=== PATIENT | male | born 1955 | race African-American/Black ===

== ENCOUNTER 2020-02-23 09:29 | Outpatient (CLI) | payer MEDICARE, MEDICAID, SELFPAY ==
[2020-02-23 10:49] LABS: Hemoglobin A1C 7.3 % (<5.7)
[2020-02-23 11:24] LABS: Creatinine Urine 89.4 mg/dL
[2020-02-23 12:00] LABS: MALB Creatinine Ratio < 6.7 mg/g (0-30); Microalbumin Urine Random < 6.0 mg/L (0-16.7)
[2020-02-23 16:29] LABS: Alanine Aminotransferase 22 U/L (4-50); Albumin Level 4.7 g/dL (3.5-5.1); Alkaline Phosphatase 120 U/L (38-126); Anion Gap 10 mmol/L (8-16); Aspartate Amino Transferase 32 U/L (17-59); Bilirubin,Total 0.3 mg/dL (0.2-1.3); Blood Urea Nitrogen 9 mg/dL (9-20); Calcium 9.9 mg/dL (8.4-10.2); Carbon Dioxide 26 mmol/L (22-30); Chloride 100 mmol/L (98-107); Cholesterol 192 mg/dL (0-200); Estimated Glomerular Filt Rate > 60; Glucose 135 mg/dL (75-110); HDL Direct 30 mg/dL; Potassium 4.2 mmol/L (3.4-5.0); Sodium 136 mmol/L (137-145); Triglycerides 216 mg/dL (<150)
[2020-02-23 16:40] LABS: LDL Cholesterol Direct 107 mg/dL
== END 2020-02-23 09:30 | disposition home or self-care (01) ==
LOC: ANHLAB 09:29
PROVIDERS: PCP Internal Medicine; Visit Provider Internal Medicine
DX: E11.9 Type 2 diabetes mellitus without complications (principal); F10.11 Alcohol abuse, in remission; E78.5 Hyperlipidemia, unspecified
CPT/HCPCS: 36415; 80053; 80061; 82043; 83036

== ENCOUNTER 2020-03-13 10:47 | Outpatient (CLI) | payer MEDICARE, MEDICAID, SELFPAY ==
[2020-03-13 12:17] LABS: Prostate Specific Antigen 0.4 ng/mL (< OR = 4.0)
== END 2020-03-13 10:48 | disposition home or self-care (01) ==
PROVIDERS: PCP Internal Medicine; Visit Provider Urology
DX: C61 Malignant neoplasm of prostate (principal)
CPT/HCPCS: 36415; 84153

== ENCOUNTER 2020-08-22 09:43 | Outpatient (CLI) | payer MEDICARE, MEDICAID, SELFPAY ==
[2020-08-22 10:29] LABS: Alanine Aminotransferase 13 U/L (4-50); Albumin Level 4.4 g/dL (3.5-5.1); Alkaline Phosphatase 128 U/L (38-126); Anion Gap 10 mmol/L (8-16); Aspartate Amino Transferase 23 U/L (17-59); Bilirubin,Total 0.3 mg/dL (0.2-1.3); Blood Urea Nitrogen 12 mg/dL (9-20); Calcium 9.5 mg/dL (8.4-10.2); Carbon Dioxide 23 mmol/L (22-30); Chloride 98 mmol/L (98-107); Cholesterol 181 mg/dL (0-200); Estimated Glomerular Filt Rate > 60; Glucose 530 mg/dL (75-110); HDL Direct 23 mg/dL; Hemoglobin A1C > 14.0 % (<5.7); LDL Cholesterol Direct 70 mg/dL; Potassium 4.4 mmol/L (3.4-5.0); Sodium 131 mmol/L (137-145); Triglycerides 460 mg/dL (<150)
[2020-08-22 10:51] LABS: Creatinine Urine 46.2 mg/dL
[2020-08-22 11:09] LABS: Microalbumin Urine Random < 6.0 mg/L (0-16.7)
[2020-08-23 05:59] LABS: MALB Creatinine Ratio < 13.0 mg/g (0-30)
== END 2020-08-22 09:44 | disposition home or self-care (01) ==
PROVIDERS: PCP Internal Medicine; Visit Provider Internal Medicine
DX: E11.9 Type 2 diabetes mellitus without complications (principal); Z79.899 Other long term (current) drug therapy; E78.5 Hyperlipidemia, unspecified
CPT/HCPCS: 36415; 80053; 80061; 82043; 83036

== ENCOUNTER 2020-09-06 10:26 | Outpatient (RCR) | payer MEDICARE, MEDICAID, SELFPAY | END 2020-12-05 23:59 | disposition home or self-care (01) | LOC: ANHDMC 10:26 | PROVIDERS: PCP Internal Medicine; Visit Provider Nurse Practitioner | DX: E11.9 Type 2 diabetes mellitus without complications (principal); Z71.89 Other specified counseling | CPT/HCPCS: G0108 ==

== ENCOUNTER 2020-09-11 10:38 | Outpatient (CLI) | payer MEDICARE, MEDICAID, SELFPAY ==
[2020-09-11 12:40] LABS: Prostate Specific Antigen 0.3 ng/mL (< OR = 4.0)
== END 2020-09-11 10:39 | disposition home or self-care (01) ==
PROVIDERS: PCP Internal Medicine; Visit Provider Urology
DX: R97.20 Elevated prostate specific antigen [PSA] (principal)
CPT/HCPCS: 36415; 84153

== ENCOUNTER 2021-04-25 11:03 | Outpatient (CLI) | payer MEDICARE, MEDICAID, SELFPAY ==
--- NOTE | ~2021-04-25 | XR_ITS ---
EXAMINATION: XR hip BI wo pelvis INDICATION: Bilateral hip pain TECHNIQUE: AP view the pelvis and two views of the right hip are obtained on three radiographs. COMPARISON: None available FINDINGS: There is advanced osteoarthritis of the right hip and moderate osteoarthritis of the left h ip. There is no fracture. Bone alignment is normal. Pelvic surgical clips are noted, possibly related to prostatectomy. There are phleboliths of the pelvis. IMPRESSION: 1. Advanced osteoarthritis of the right hip and moderate osteoarthritis of the left hip without acute osseous abnormality. Reviewed, dictated and finalized at location B. 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
--- NOTE | ~2021-04-25 | XR_ITS ---
EXAMINATION: XR lumbar spine 2-3V DATE: 04/25/2021 11:53 INDICATION: Low back pain TECHNIQUE: Anteroposterior and lateral views of the lumbar spine, and cone-down lateral view of the l umbosacral junction were obtained. COMPARISON: None. FINDINGS: There is no fracture, dislocation, or subluxation. The vertebral body heights are normal. T here is mild loss of intervertebral disc space height throughout the lumbar spine. There is moderate facet osteoarthritis of the lower lumbar spine. Small degenerative osteophytes project from the anter ior endplates of multiple vertebral bodies. Calcified atherosclerosis is noted. Surgical clips projec t in the pelvis. A large volume of colonic stool is present. IMPRESSION: 1. Mild lumbar spondylosis without acute findings. Reviewed, dictated and finalized at location B. 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
[2021-04-25 12:10] LABS: Hemoglobin A1C 6.9 % (<5.7)
[2021-04-25 12:12] LABS: Alanine Aminotransferase 19 U/L (4-50); Albumin Level 4.9 g/dL (3.5-5.1); Alkaline Phosphatase 88 U/L (38-126); Anion Gap 11 mmol/L (8-16); Aspartate Amino Transferase 31 U/L (17-59); Bilirubin,Total 0.4 mg/dL (0.2-1.3); Blood Urea Nitrogen 12 mg/dL (9-20); Calcium 9.2 mg/dL (8.4-10.2); Carbon Dioxide 25 mmol/L (22-30); Chloride 104 mmol/L (98-107); Cholesterol 114 mg/dL (0-200); Estimated Glomerular Filt Rate > 60; Glucose 134 mg/dL (65-110); HDL Direct 28 mg/dL; Potassium 4.5 mmol/L (3.4-5.0); Sodium 140 mmol/L (137-145); Triglycerides 75 mg/dL (<150)
[2021-04-25 12:23] LABS: LDL Cholesterol Direct 64 mg/dL
[2021-04-25 12:43] LABS: Prostate Specific Antigen 0.4 ng/mL (< OR = 4.0)
[2021-04-25 13:01] LABS: MALB Creatinine Ratio 15.2 mg/g (0-30); Microalbumin Urine Random 33.5 mg/L (0-16.7)
== END 2021-04-25 11:04 | disposition home or self-care (01) ==
LOC: ANHLAB 11:07
PROVIDERS: Nurse Practitioner; PCP Internal Medicine; Visit Provider Internal Medicine
DX: E78.5 Hyperlipidemia, unspecified (principal); E11.9 Type 2 diabetes mellitus without complications; Z79.899 Other long term (current) drug therapy; Z12.5 Encounter for screening for malignant neoplasm of prostate; C61 Malignant neoplasm of prostate
CPT/HCPCS: 36415; 72100; 73521; 80053; 80061; 82043; 83036; 84153

== ENCOUNTER 2021-09-05 08:12 | Outpatient (CLI) | payer MEDICARE, MEDICAID, SELFPAY ==
[2021-09-05 08:40] LABS: Potassium 4.3 mmol/L (3.4-5.0)
[2021-09-05 08:42] LABS: Alanine Aminotransferase 19 U/L (6-50); Albumin Level 4.9 g/dL (3.5-5.1); Alkaline Phosphatase 84 U/L (38-126); Anion Gap 11 mmol/L (8-16); Aspartate Amino Transferase 29 U/L (17-59); Bilirubin,Total 0.5 mg/dL (0.2-1.3); Blood Urea Nitrogen 14 mg/dL (9-20); Calcium 9.4 mg/dL (8.4-10.2); Carbon Dioxide 23 mmol/L (22-30); Chloride 105 mmol/L (98-107); Cholesterol 122 mg/dL (0-200); Estimated Glomerular Filt Rate > 60; Glucose 142 mg/dL (65-110); HDL Direct 28 mg/dL; Sodium 139 mmol/L (137-145); Triglycerides 88 mg/dL (<150)
[2021-09-05 08:52] LABS: LDL Cholesterol Direct 54 mg/dL
[2021-09-05 08:53] LABS: Hemoglobin A1C 7.7 % (<5.7)
== END 2021-09-05 08:13 | disposition home or self-care (01) ==
PROVIDERS: PCP Internal Medicine; Visit Provider Internal Medicine
DX: E11.9 Type 2 diabetes mellitus without complications (principal); E78.5 Hyperlipidemia, unspecified
CPT/HCPCS: 36415; 80053; 80061; 83036

== ENCOUNTER 2021-09-06 07:01 | Outpatient (CLI) | payer MEDICARE, MEDICAID, SELFPAY ==
[2021-09-11 19:50] LABS: Albumin 4.4 g/dL (3.8-4.8); Alpha 1 Globulin 0.3 g/dL (0.2-0.3); Beta 1 Globulin 0.5 g/dL (0.4-0.6); Gamma Globulin 1.5 g/dL (0.8-1.7); Protein, Total 8.1 g/dL (6.1-8.1)
[2021-09-11 21:55] LABS: Total Protein/Creatinine Ratio 42 mg/g creat (22-128)
== END 2021-09-06 07:02 | disposition home or self-care (01) ==
PROVIDERS: PCP Internal Medicine; Visit Provider Internal Medicine
DX: E88.09 Other disorders of plasma-protein metabolism, not elsewhere classified (principal)
CPT/HCPCS: 36415; 82570; 84155; 84156; 84165; 84166

== ENCOUNTER 2022-03-01 08:55 | Outpatient (CLI) | payer MEDICARE, MEDICAID, SELFPAY ==
[2022-03-01 09:51] LABS: Alanine Aminotransferase 21 U/L (6-50); Albumin Level 4.9 g/dL (3.5-5.1); Alkaline Phosphatase 92 U/L (38-126); Anion Gap 8 mmol/L (8-16); Aspartate Amino Transferase 26 U/L (17-59); Bilirubin,Total 0.4 mg/dL (0.2-1.3); Blood Urea Nitrogen 10 mg/dL (9-20); Calcium 9.3 mg/dL (8.4-10.2); Carbon Dioxide 28 mmol/L (22-30); Chloride 102 mmol/L (98-107); Cholesterol 123 mg/dL (0-200); Estimated Glomerular Filt Rate > 60; Glucose 152 mg/dL (65-110); HDL Direct 29 mg/dL; Sodium 138 mmol/L (137-145); Triglycerides 114 mg/dL (<150)
[2022-03-01 10:01] LABS: Creatinine Urine 131.1 mg/dL
[2022-03-01 10:20] LABS: MALB Creatinine Ratio 8.7 mg/g (0-30); Microalbumin Urine Random 11.4 mg/L (0-16.7)
[2022-03-01 10:27] LABS: LDL Cholesterol Direct 57 mg/dL
[2022-03-01 11:40] LABS: Hemoglobin A1C 8.6 % (<5.7)
== END 2022-03-01 08:56 | disposition home or self-care (01) ==
LOC: ANHLAB 08:57
PROVIDERS: PCP Internal Medicine; Visit Provider Internal Medicine
DX: E11.9 Type 2 diabetes mellitus without complications (principal); Z79.899 Other long term (current) drug therapy; E78.5 Hyperlipidemia, unspecified
CPT/HCPCS: 36415; 80053; 80061; 82043; 83036

== ENCOUNTER 2022-07-08 06:36 | Outpatient (CLI) | payer MEDICARE, MEDICAID, SELFPAY ==
[2022-07-08 08:09] LABS: Hemoglobin A1C 6.5 % (<5.7)
[2022-07-08 08:10] LABS: Alanine Aminotransferase 22 U/L (6-50); Alkaline Phosphatase 98 U/L (38-126); Anion Gap 12 mmol/L (8-16); Aspartate Amino Transferase 31 U/L (17-59); Bilirubin,Total 0.5 mg/dL (0.2-1.3); Blood Urea Nitrogen 15 mg/dL (9-20); Calcium 9.4 mg/dL (8.4-10.2); Carbon Dioxide 23 mmol/L (22-30); Chloride 103 mmol/L (98-107); Estimated Glomerular Filt Rate > 60; Glucose 83 mg/dL (65-110); Potassium 4.3 mmol/L (3.4-5.0); Sodium 138 mmol/L (137-145)
== END 2022-07-08 06:37 | disposition home or self-care (01) ==
PROVIDERS: PCP Family Medicine; Visit Provider Family Medicine
DX: E11.9 Type 2 diabetes mellitus without complications (principal)
CPT/HCPCS: 36415; 80053; 83036

== ENCOUNTER 2022-12-18 08:34 | Outpatient (CLI) | payer MEDICARE, MEDICAID, SELFPAY ==
[2022-12-18 09:49] LABS: Alanine Aminotransferase 19 U/L (6-50); Albumin Level 4.9 g/dL (3.5-5.1); Alkaline Phosphatase 80 U/L (38-126); Anion Gap 11 mmol/L (8-16); Aspartate Amino Transferase 27 U/L (17-59); Bilirubin,Total 0.5 mg/dL (0.2-1.3); Blood Urea Nitrogen 14 mg/dL (9-20); Calcium 10.1 mg/dL (8.4-10.2); Carbon Dioxide 28 mmol/L (22-30); Chloride 103 mmol/L (98-107); Estimated Glomerular Filt Rate > 60; Glucose 139 mg/dL (65-110); Potassium 4.4 mmol/L (3.4-5.0); Sodium 142 mmol/L (137-145)
[2022-12-18 11:03] LABS: Hemoglobin A1C 6.2 % (<5.7)
== END 2022-12-18 08:35 | disposition home or self-care (01) ==
PROVIDERS: PCP Nurse Practitioner Family; Visit Provider Nurse Practitioner Family
DX: E11.9 Type 2 diabetes mellitus without complications (principal); Z79.4 Long term (current) use of insulin
CPT/HCPCS: 36415; 80053; 83036

== ENCOUNTER 2022-12-26 08:32 | Outpatient (CLI) | payer MEDICARE, MEDICAID, SELFPAY ==
[2022-12-26 09:05] LABS: Basophils Percent Auto 0.5 % (0.2-1.2); Eosinophils Absolute Auto 0.1 K/mm3 (0-0.3); Eosinophils Percent Auto 1.2 % (0-4.4); Hematocrit 45.2 % (42.0-52.0); Hemoglobin 14.6 g/dL (14.0-18.0); Immature Granulocyte Absolute 0.01 K/mm3 (0.00-0.031); Immature Granulocyte Percent A 0.2 % (0-0.5); Lymphocytes Absolute Auto 2.26 K/mm3 (0.9-3.2); Lymphocytes Percent Auto 54.5 % (18.3-44.2); Mean Corpuscular HGB Conc 32.3 g/dl (32-36); Mean Corpuscular Hemoglobin 25.7 pg (26-34); Mean Corpuscular Volume 79.7 fl (80-100); Mean Platelet Volume 8.9 fl (7.4-10.4); Monocytes Absolute Auto 0.4 K/mm3 (0.1-0.6); Monocytes Percent Auto 9.2 % (2.6-8.5); Neutrophils Absolute Auto 1.4 K/mm3 (1.3-6.7); Neutrophils Percent Auto 34.4 % (45.5-73.1); Platelet Count Result 245 k/mm3 (150-375); Red Blood Count 5.67 M/mm3 (4.6-6.20); Red Cell Distribution Width 15.5 % (11.5-14.5); White Blood Count 4.2 K/mm3 (4.5-10.0)
[2022-12-26 09:16] LABS: Alanine Aminotransferase 18 U/L (6-50); Albumin Level 4.8 g/dL (3.5-5.1); Alkaline Phosphatase 75 U/L (38-126); Anion Gap 11 mmol/L (8-16); Aspartate Amino Transferase 28 U/L (17-59); Bilirubin,Total 0.4 mg/dL (0.2-1.3); Blood Urea Nitrogen 12 mg/dL (9-20); Carbon Dioxide 29 mmol/L (22-30); Chloride 101 mmol/L (98-107); Estimated Glomerular Filt Rate > 60; Glucose 103 mg/dL (65-110); Potassium 4.7 mmol/L (3.4-5.0); Sodium 141 mmol/L (137-145)
[2022-12-26 10:29] LABS: Hemoglobin A1C 6.1 % (<5.7)
== END 2022-12-26 08:33 | disposition home or self-care (01) ==
LOC: ANHLAB 08:33
PROVIDERS: PCP Nurse Practitioner Family; Visit Provider Nurse Practitioner Family
DX: B18.2 Chronic viral hepatitis C (principal); C61 Malignant neoplasm of prostate; E11.9 Type 2 diabetes mellitus without complications; E78.5 Hyperlipidemia, unspecified; F41.9 Anxiety disorder, unspecified; Z79.4 Long term (current) use of insulin
CPT/HCPCS: 36415; 80053; 83036; 85025

== ENCOUNTER 2023-05-01 09:58 | Outpatient (CLI) | payer MEDICARE, MEDICAID, SELFPAY ==
[2023-05-01 11:00] LABS: Alanine Aminotransferase 18 U/L (6-50); Albumin Level 4.8 g/dL (3.5-5.1); Alkaline Phosphatase 83 U/L (38-126); Anion Gap 9 mmol/L (8-16); Aspartate Amino Transferase 31 U/L (17-59); Bilirubin,Total 0.4 mg/dL (0.2-1.3); Blood Urea Nitrogen 14 mg/dL (9-20); Calcium 9.5 mg/dL (8.4-10.2); Carbon Dioxide 24 mmol/L (22-30); Chloride 104 mmol/L (98-107); Estimated Glomerular Filt Rate > 60; Glucose 124 mg/dL (65-110); Potassium 4.2 mmol/L (3.4-5.0); Sodium 137 mmol/L (137-145)
[2023-05-01 11:07] LABS: Hemoglobin A1C 6.4 % (<5.7)
[2023-05-01 11:26] LABS: Creatinine Urine 71.2 mg/dL
[2023-05-01 11:31] LABS: MALB Creatinine Ratio 9.6 mg/g (0-30); Microalbumin Urine Random 6.8 mg/L (0-16.7)
== END 2023-05-01 09:59 | disposition home or self-care (01) ==
PROVIDERS: PCP Nurse Practitioner Family; Visit Provider Nurse Practitioner Family
DX: E11.9 Type 2 diabetes mellitus without complications (principal); E78.5 Hyperlipidemia, unspecified; Z79.899 Other long term (current) drug therapy
CPT/HCPCS: 36415; 80053; 82043; 83036

== ENCOUNTER 2023-08-28 06:37 | Outpatient (CLI) | payer MEDICARE, MEDICAID, SELFPAY ==
[2023-08-28 08:09] LABS: Hemoglobin A1C 6.5 % (<5.7)
[2023-08-28 08:25] LABS: Alanine Aminotransferase 16 U/L (6-50); Albumin Level 4.8 g/dL (3.5-5.1); Alkaline Phosphatase 95 U/L (38-126); Aspartate Amino Transferase 26 U/L (17-59); Bilirubin,Total 0.4 mg/dL (0.2-1.3); Blood Urea Nitrogen 15 mg/dL (9-20); Carbon Dioxide 26 mmol/L (22-30); Cholesterol 174 mg/dL (0-200); Estimated Glomerular Filt Rate > 60; Glucose 109 mg/dL (65-110); Triglycerides 89 mg/dL (<150)
[2023-08-28 08:48] LABS: Anion Gap 11 mmol/L (4-12); Calcium 9.4 mg/dL (8.4-10.2); Chloride 102 mmol/L (98-107); HDL Direct 37 mg/dL; Potassium 4.4 mmol/L (3.4-5.0); Sodium 139 mmol/L (137-145)
[2023-08-28 08:55] LABS: LDL Cholesterol Direct 111 mg/dL
[2023-08-28 17:15] LABS: Microalbumin Urine Random 9.6 mg/L (0-16.7)
[2023-08-28 17:24] LABS: Creatinine Urine 102.8 mg/dL; MALB Creatinine Ratio 9.3 mg/g (0-30)
== END 2023-08-28 06:38 | disposition home or self-care (01) ==
LOC: ANHLAB 06:42
PROVIDERS: PCP Nurse Practitioner Family; Visit Provider Nurse Practitioner Family
DX: E78.5 Hyperlipidemia, unspecified (principal); E11.9 Type 2 diabetes mellitus without complications; Z79.4 Long term (current) use of insulin; C61 Malignant neoplasm of prostate; Z79.899 Other long term (current) drug therapy
CPT/HCPCS: 36415; 80053; 80061; 82043; 83036

== ENCOUNTER 2024-04-02 07:23 | Outpatient (CLI) | payer MEDICARE, MEDICAID, SELFPAY ==
--- OUTSIDE RECORDS SUMMARY | 2024-04-02 07:31 | XMS_ITS | Data Portability ---
Author Organization [facility] [employer], Main Office Address [address] [place] [address] Assessment Encounter Date Assessment Date Assessment LastModified by Organization Details LastModified Time 01/13/2023 01/13/2023 This note is dictated and transcribed by [employer]. Switch Foreman variances may occur. Despite proofreading, typographical errors may occur. Occasional wrong-word or 'labsr-a-cvrm' substitutions may have occurred due to the inherent limitations of voice recording. Read the chart carefully and recognize, using context, where substitutions have occurred. [email or web address] Not available 01/13/2023 10:58:18 Plan of Treatment Reminders Order Date Submit Date Provider Last Modified By Organization Details Last Modified Time Details Appointments New Patient 15 2024 10:00A M Shree Worthington DPM Not available Not available Not available Lab None recorded. Referral None recorded. Procedures None recorded. Surgeries None recorded. Imaging None recorded. Medication Orders Silvadene 1 % topical cream 2023 024 [id number], [address], [place], [place], [phone], 03/17/2023 11:30:43 Patient Targets Encounter Date Encounter Id Patient Goals Patient Target Last Modified By Organization Details Last Modified Time eliminate pain, keep feet healthy, avoid complications leading to infection, amputation akachigian Not available 03/17/2023 11:30:22 Patient Instructions Encounter Date Encounter Id Patient Instructions Last Modified By Organization Details Last Modified Time 03/17/2023 [id number] discussed in depth routine NIDDM foot care w/ patient [email or web address] Not available 03/17/2023 11:29:56 Reason for Referral None Reported. Problems Name Problem SNOMED Code Status Onset Date Resolution Date Notes Provider Name and Address Organization Details Recorded Time Curly toe 584611571 Active 2022 Shree Worthington DPM [address], [place], [address] , [facility] [employer] [facility] 3 10:56:37 Pain of toe of left foot 6026118088916 08 Active 2022 Shree Worthington DPM [address] [facility] [address] [facility] [address], [place], [address] , [facility] 3 10:56:45 Dystrophia unguium 36278107 Active 2022 Shree Worthington DPM [address] [facility] [address], [facility] [address], [place], [address] , [facility] 3 10:56:49 [place] of toe 49867839 Active 2022 Shree Worthington DPM [address] [facility] [address], [facility] [address], [place], [address] , [facility] 3 10:56:53 Anxiety 04279580 Active 2022 Raquel andrade, [place] - [facility] 3 11:29:57 Osteoarthr itis 514102044 Active 2022 Raquel andrade, [place] [facility] 3 11:30:07 Malignant tumor of prostate 261294084 Active 2022 Raquel andrade, [place] [facility] 3 11:30:19 Chronic hepatitis C 495158478 Active 2022 Raqule andrade, [place] - [facility] 3 11:30:46 Hyperlipid emia 10189518 Active 2022 Raquel andrade, [place] - [facility] 3 11:30:57 Fatigue 87340782 Active 2022 Raquel andrade, [place] [facility] 3 11:31:08 Hyperprote inemia 49201909 Active 2022 Raquel andrade, [facility] [employer] [facility] 3 11:31:21 Backache 713941977 Active 2022 Raquel andrade, [facility] [employer] [facility] 3 11:31:41 Paronychia of toe of left foot 7518632903379 9100 Active 2023 SARAI Maguire, [facility] [employer] [facility] 4 11:04:05 Foot callus 949467549 Active 2023 Ankur Ma DPM [address], [place], [address] , [facility] [employer] [facility] [employer] 4 11:53:54 Callus of heel 482641568 Active 2023 Ankur Ma DPM [address], [place], [address] , [facility] [employer] [facility] [employer] 4 11:57:52 Onychomyco sis 630091218 Active 2023 Ankur Ma DPM [address], [place], [address] , [employer] [facility] [employer] 4 11:58:14 Notes:VENTRAL HERNIA Problem Notes None recorded. Procedures Surgical History Date Name Laterality Status Provider Name and Address Organization Details Recorded Time 04/01/19 24 Nail Debridement completed Ankur Ma DPM [address], [place], [address], [facility] [employer] 04/01/2023 11:53:45 03/17/19 24 Nail Debridement completed Ankur Ma DPM [address], [place], [address], [facility] [employer] [facility] [employer] 03/17/2023 11:27:27 03/17/19 24 Total Nail Avulsion with Phenol Matrixectomy completed Ankur Ma DPM [address], [place], [address], [facility] [employer] [facility] [employer] 03/17/2023 11:25:40 01/14/20 23 Nail Debridement completed Shree Worthington DPM [address], [place], [address], [facility] [employer] [facility] 01/13/2023 10:56:28 01/14/20 23 Callus Debridement, One completed Shree Worthington DPM [address], [place], [address], [facility] [employer] [facility] 01/13/2023 10:56:20 Imaging Results None recorded. Procedure Notes None recorded. Medical Equipment None Reported. Allergies No known drug allergies Medications Name Sig Start Date Stop Date Status Note LastModified by Organization Details LastModified Time latanoprost 0.005 % eye drops INSTILL 1 DROP INTO BOTH EYES EVERY NIGHT AT BEDTIME active Not Available Not Available No t Available silver sulfadiazin e 1 % topical cream APPLY A 1/16INCH THICK LAYER TO ENTIRE BURN AREA TWICE DAILY active Not Available Not Available No t Available quetiapine 300 mg tablet TAKE 1 TABLET BY MOUTH EVERY NIGHT AT BEDTIME X 90 DAYS active Not Available Not Available No t Available atorvastati n 10 mg tablet 01/13 completed Not Available Not Available Not Available sildenafil 100 mg tablet TAKE 1 TABLET BY MOUTH ONCE DAILY NEEDED active Not Available Not Available No t Available tamsulosin 0.4 mg capsule TAKE 1 CAPSULE BY MOUTH AT BEDTIME active Not Available Not Available No t Available metformin 1,000 mg tablet TAKE 1 TABLET BY MOUTH TWICE A DAY active Not Available Not Available No t Available ezetimibe 10 mg tablet 01/13 completed Not Available Not Available Not Available BD Ultra-Fine Mini Pen Needle 31 gauge x 3/16 DIRECTED active Not Available Not Available No t Available Lantus Solostar U-100 Insulin 100 unit/mL (3 mL) subcutaneou s pen active Not Available Not Available Not Available BD Ultra-Fine [place] Pen Needle 32 gauge x active Not Available Not Available Not Available buprenorphi ne 8 mg-naloxone 2 mg sublingual film active Not Available Not Available Not Available OneTouch Verio test strips USE TO TEST BLOOD SUGARS TWICE DAILY *NEED MED B INFO* active Not Available Not Available No t Available icosapent ethyl 1 gram capsule TAKE 1 CAPSULE BY MOUTH TWICE A DAY active Not Available Not Available No t Available Jardiance 25 mg tablet TAKE 1 TABLET BY MOUTH EVERY DAY active Not Available Not Available No t Available semaglutide 0.25 mg or 0.5 mg (2 mg/3 mL) subcutaneou s pen injector Inject by subcutane ous route. active Not Available Not Available No t Available Vitals Date Recorded Heart rate Respiratory rate Oxygen saturation Oxygen saturation in Arterial blood by Pulse oximetry Systolic blood pressure Diastolic blood pressure Provider Name and Address Organization Details Last Updated DateTime 3 103 /min 14 /min 98 % 98 % 129 mm[Hg] 78 mm[Hg] Lakia Daniel [facility] [employer] [facility] 3 10:33:57 Date Recorded Body height Body mass index (BMI) Body weight Provider Name and Address Organization Details Last Updated DateTime 01/13/2023 165.1 cm 26 kg/m2 86317.41 g Raquel Keller [facility] [employer] [facility] 01/13/2023 11:26:21 Date Recorded Body height Body mass index (BMI) Body weight Oxygen saturation Oxygen saturation in Arterial blood by Pulse oximetry Body temperature Heart rate Systolic blood pressure Diastolic blood pressure Provider Name and Address Organization Details Last Updated DateTime 4 165.1 cm 26 kg/m2 47955.4 1 g 99 % 99 % 98.2 [degF] 86 /min 120 mm[Hg] 82 mm[Hg] SARAI Maguire [facility] [employer] [facility] 4 10:14:51 Social History Question Answer Notes LastModified by Organizat ion Details LastModified Time What Was The Date Of Your Most Recent Tobacco Screening? 03/17/2023 [email or web address] Information not available 03/17/2023 Sex: Unknown Functional Status None recorded. Mental Status None recorded. Family History Relationship Description Onset Age of this Age Resolved Age Notes LastModified by Organization Details LastModified Time Unspecified Relation Diabetes mellitus [email or web address] Not available 2022 11:17:45 Unspecified Relation Arthritis [email or web address] Not available 023 11:17:52 Unspecified Relation Hypertensive disorder [email or web address] Not available 2022 11:18:00 Unspecified Relation Family history of malignant neoplasm [email or web address] Not available 2022 11:18:08 Medical History Condition Response ARTHRITIS Y CANCER: SPECIFY Y ANXIETY DISORDER Y HEPATITIS / LIVER DISEASE Y DIABETES, TYPE Y LIVER DISEASE Y BACK / NECK PROBLEMS Y OSTEOARTHRITIS Y HIGH CHOLESTEROL / HYPERLIPIDEMIA Y Past Encounters Encounter ID Performer Location Encounter Start Date Encounter Closed Date Diagnosis/Indication Diagnosis SNOMED-CT Code Diagnosis ICD10 Code Diagnosis Note [id number] Shree Worthington DPM [facility] Guido Sheldon [address] [place] [address] 01/13/2023 10:26:33 01/13/2023 14:33:06 Curly toe 866614377 M20.5X9 educated on conditionE ducated on surgical and conservati ve measurespa tient denies surgery at this time new recommendA mlactin lotion over-the-c ounter with use of pumice stone to keep the callus from building upRecommen d silicone toe cap for offloading and wide supportive athletic shoe gear with soft toe boxfollow- up as needed Pain of to e of left foot 9498414073 54315 M79.675 left 5th toe, as above Dystrophia unguium 13433 009 L60.3 nails debrided without incident [place] of toe 26399926 L84 as abovedebri ded without incident [id number] Ankur Ma DPM [facility] Podiatry [place] [address] [address] 03/17/2023 09:42:13 09/18/2023 14:33:39 Paronychia of toe of left foot 0141808108 8694196 L03.456 [id number] Ankur Ma DPM [facility] Podiatry [place] [address] [address] 04/01/2023 09:40:46 04/01/2023 16:32:57 Foot callus 791831494 L84 x 2 heels Callus of heel 183649398 L84 emerson; debridemen t of callus both heels Onychomycosis 389221195 B35.1 nail debridemen t emerson Health Concerns Section Related Observation LastModified by Organization Detai ls LastModified Time None Recorded Concern Status LastModified by Organization Details LastModified Time None Recorded Advance Directives Directive None Recorded Payers Encounter Date Sequence Insurance Name Policy Number Policy Gardiner Covered Member ID Gardiner Member ID Guarantor Name 01/13/2023 1 [place] Ramy Parker Jr [id number] Ramy B Reel 01/13/2023 2 [place] WHEN [place]ARE OR MEDICARE REPLACEMENT PRIMARY) Ramy B Reel [id number] Ramy B Reel 03/17/2023 1 [place] Ramy B Reel Jr [id number] Ramy B Reel 03/17/2023 2 [place] REPLACEMENT [place]IMARY) Ramy B Reel [id number] Ramy B Reel 04/01/2023 1 [place] Ramy B Reel Jr [id number] Ramy B Reel 04/01/2023 2 [place] REPLACEMENT [place]) Ramy B Reel [id number] Ramy B Reel Notes Date Note Type Note Provider Name and Address Organization Details Recorded Time 01/13/2023 text/html . Patient is a 67-year-old male who presents the office with complaints of pain to his left 5th toe. Patient states that he has a sharp pain with walking and standing. Patient denies any injury or wounds to the area. Patient states the pain is improved with sitting. Patient denies any treatment for this problem. Patient denies any other complaints. Shree Worthington DPM [address] [facility] [address], [place], [address], [employer] 01/13/2023 11:45:03 03/17/2023 text/html Pt c/o calluses both feet, long thick nails, emerson. And a very painful, red, swollen toe, Lt 5th. Ankur Ma DPM [address], [place], [address], [employer] 03/17/2023 11:30:38 04/01/2023 text/html Calluses present x several yrs, gradually thickening;' nails are painful and thick, both great toes. Pain on the 5th toe, where P and A performed, two wks ago. Ankur Ma DPM [address] [facility] [address], [place], [address], [facility] [employer] [facility] 04/01/2023 11:58:28
[2024-04-02 07:59] LABS: Basophils Percent Auto 0.4 % (0.2-1.2); Eosinophils Absolute Auto 0.1 K/mm3 (0-0.3); Eosinophils Percent Auto 1.3 % (0-4.4); Hematocrit 40.8 % (42.0-52.0); Hemoglobin 13.6 g/dL (14.0-18.0); Immature Granulocyte Absolute 0.01 K/mm3 (0.00-0.031); Immature Granulocyte Percent A 0.2 % (0-0.5); Lymphocytes Absolute Auto 2.38 K/mm3 (0.9-3.2); Lymphocytes Percent Auto 45.2 % (18.3-44.2); Mean Corpuscular HGB Conc 33.3 g/dl (32-36); Mean Corpuscular Hemoglobin 27.6 pg (26-34); Mean Corpuscular Volume 82.8 fl (80-100); Mean Platelet Volume 9.6 fl (7.4-10.4); Monocytes Absolute Auto 0.5 K/mm3 (0.1-0.6); Monocytes Percent Auto 9.3 % (2.6-8.5); Neutrophils Absolute Auto 2.3 K/mm3 (1.3-6.7); Neutrophils Percent Auto 43.6 % (45.5-73.1); Platelet Count Result 222 k/mm3 (150-375); Red Blood Count 4.93 M/mm3 (4.6-6.20); Red Cell Distribution Width 14.3 % (11.5-14.5); White Blood Count 5.3 K/mm3 (4.5-10.0)
[2024-04-02 08:10] LABS: Alanine Aminotransferase 70 U/L (6-50); Albumin Level 4.7 g/dL (3.5-5.1); Alkaline Phosphatase 81 U/L (38-126); Anion Gap 13 mmol/L (4-12); Aspartate Amino Transferase 51 U/L (17-59); Bilirubin,Total 0.4 mg/dL (0.2-1.3); Blood Urea Nitrogen 15 mg/dL (9-20); Calcium 9.5 mg/dL (8.4-10.2); Carbon Dioxide 24 mmol/L (22-30); Chloride 103 mmol/L (98-107); Cholesterol 76 mg/dL (0-200); Estimated Glomerular Filt Rate > 60; Glucose 120 mg/dL (65-110); HDL Direct 28 mg/dL; Potassium 4.3 mmol/L (3.4-5.0); Sodium 140 mmol/L (137-145); Triglycerides 58 mg/dL (<150)
[2024-04-02 08:20] LABS: LDL Cholesterol Direct 33 mg/dL
[2024-04-02 09:26] LABS: Microalbumin Urine Random 9.1 mg/L (0-16.7)
[2024-04-02 09:31] LABS: Creatinine Urine 76.7 mg/dL; MALB Creatinine Ratio 11.9 mg/g (0-30)
[2024-04-02 09:46] LABS: Hemoglobin A1C 7.5 % (<5.7)
== END 2024-04-02 07:24 | disposition home or self-care (01) ==
PROVIDERS: PCP Nurse Practitioner Family; Visit Provider Nurse Practitioner Family
DX: E78.5 Hyperlipidemia, unspecified (principal); E11.9 Type 2 diabetes mellitus without complications; B18.2 Chronic viral hepatitis C; C61 Malignant neoplasm of prostate; M19.90 Unspecified osteoarthritis, unspecified site; Z79.4 Long term (current) use of insulin
CPT/HCPCS: 36415; 80053; 80061; 82043; 83036; 85025

== ENCOUNTER 2024-09-07 06:55 | Outpatient (CLI) | payer MEDICARE, MEDICAID, SELFPAY ==
--- OUTSIDE RECORDS SUMMARY | 2024-09-07 06:58 | XMS_ITS | Patient Health Record ---
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 Name Role Phone MERRILL Danyell KNOWLES Primary Care Provider Unavailab Annalisa Love Unavailable [phone] Allergies No Known Allergies Results Component Value Reference Range Notes UDT Reviewed date:09/18/2023 08:39:20 AM Interpretation: Performing Lab: Notes/Report: THC neg 0 - 50 ng/ml Cocaine neg 0 - 300 ng/ml Amphetamine neg 0 - 1000 ng/ml Buprenorphine (BUP) positive 0 - 10 ng/ml Secobarbital (Bar) neg 0 - 300 ng/ml Oxazepam (BZO) neg 0 - 300 ng/ml 9-dfrosydhzb-8,6-ngcrunze-4, 3-diph enylpyrrolidine (EDDP) neg 0 - 300 ng/ml Methamphetamine (MET) neg 0 - 1000 ng/ml Methylenedioxymethamphetamin e (MDMA) neg 0 - 500 ng/ml Morphine (MOP 300/RMF1125) neg 0 - 300 ng/ml Methadone (MTD) neg 0 - 300 ng/ml Phencyclidine (PCP) neg 0 - 25 ng/ml Nortriptyline (TCA) neg 0 - 1000 ng/ml Oxycodone neg 0 - 300 ng/ml x neg 0 - 300 ng/ml UDT Reviewed date:10/22/2023 10:44:50 AM Interpretation: Performing Lab: Notes/Report: THC N 0 - 50 ng/ml Cocaine N 0 - 300 ng/ml Amphetamine N 0 - 1000 ng/ml Buprenorphine (BUP) P 0 - 10 ng/ml Secobarbital (Bar) N 0 - 300 ng/ml Oxazepam (BZO) N 0 - 300 ng/ml 7-fouxaxaguk-0,4-fzbbacdn-4, 3-diph enylpyrrolidine (EDDP) N 0 - 300 ng/ml Methamphetamine (MET) N 0 - 1000 ng/ml Methylenedioxymethamphetamin e (MDMA) N 0 - 500 ng/ml Morphine (MOP 300/ZUA0066) N 0 - 300 ng/ml Methadone (MTD) N 0 - 300 ng/ml Phencyclidine (PCP) N 0 - 25 ng/ml Nortriptyline (TCA) N 0 - 1000 ng/ml Oxycodone N 0 - 300 ng/ml x N 0 - 300 ng/ml UDT Reviewed date:11/25/2023 09:42:58 AM Interpretation: Performing Lab: Notes/Report: THC NEG 0 - 50 ng/ml Cocaine NEG 0 - 300 ng/ml Amphetamine NEG 0 - 1000 ng/ml Buprenorphine (BUP) POSITIVE 0 - 10 ng/ml Secobarbital (Bar) NEG 0 - 300 ng/ml Oxazepam (BZO) NEG 0 - 300 ng/ml 8-utazxyputf-5,4-wbuwgjar-5, 3-diph enylpyrrolidine (EDDP) NEG 0 - 300 ng/ml Methamphetamine (MET) NEG 0 - 1000 ng/ml Methylenedioxymethamphetamin e (MDMA) NEG 0 - 500 ng/ml Morphine (MOP 300/DPI4038) NEG 0 - 300 ng/ml Methadone (MTD) NEG 0 - 300 ng/ml Phencyclidine (PCP) NEG 0 - 25 ng/ml Nortriptyline (TCA) NEG 0 - 1000 ng/ml Oxycodone NEG 0 - 300 ng/ml x NEG 0 - 300 ng/ml UDT Reviewed date:12/23/2023 09:01:52 AM Interpretation: Performing Lab: Notes/Report: THC n 0 - 50 ng/ml Cocaine n 0 - 300 ng/ml Amphetamine n 0 - 1000 ng/ml Buprenorphine (BUP) p 0 - 10 ng/ml Secobarbital (Bar) n 0 - 300 ng/ml Oxazepam (BZO) n 0 - 300 ng/ml 1-qinyhcoevs-6,5-psjapmqq-2, 3-diph enylpyrrolidine (EDDP) n 0 - 300 ng/ml Methamphetamine (MET) n 0 - 1000 ng/ml Methylenedioxymethamphetamin e (MDMA) n 0 - 500 ng/ml Morphine (MOP 300/JBG6082) n 0 - 300 ng/ml Methadone (MTD) n 0 - 300 ng/ml Phencyclidine (PCP) n 0 - 25 ng/ml Nortriptyline (TCA) n 0 - 1000 ng/ml Oxycodone n 0 - 300 ng/ml x n 0 - 300 ng/ml UDT Reviewed date:01/21/2024 12:41:06 PM Interpretation: Performing Lab: Notes/Report: THC NEG 0 - 50 ng/ml Cocaine NEG 0 - 300 ng/ml Amphetamine NEG 0 - 1000 ng/ml Buprenorphine (BUP) POS 0 - 10 ng/ml Secobarbital (Bar) NEG 0 - 300 ng/ml Oxazepam (BZO) NEG 0 - 300 ng/ml 6-nnyueqbkll-9,0-untusndc-4, 3-diph enylpyrrolidine (EDDP) NEG 0 - 300 ng/ml Methamphetamine (MET) NEG 0 - 1000 ng/ml Methylenedioxymethamphetamin e (MDMA) NEG 0 - 500 ng/ml Morphine (MOP 300/NOO7487) NEG 0 - 300 ng/ml Methadone (MTD) NEG 0 - 300 ng/ml Phencyclidine (PCP) NEG 0 - 25 ng/ml Nortriptyline (TCA) NEG 0 - 1000 ng/ml Oxycodone NEG 0 - 300 ng/ml x NEG 0 - 300 ng/ml UDT Reviewed date:03/02/2024 12:45:26 PM Interpretation: Performing Lab: Notes/Report: THC N 0 - 50 ng/ml Cocaine N 0 - 300 ng/ml Amphetamine N 0 - 1000 ng/ml Buprenorphine (BUP) P 0 - 10 ng/ml Secobarbital (Bar) N 0 - 300 ng/ml Oxazepam (BZO) N 0 - 300 ng/ml 3-wnyheuzmhp-8,8-eraahycr-9, 3-diph enylpyrrolidine (EDDP) N 0 - 300 ng/ml Methamphetamine (MET) N 0 - 1000 ng/ml Methylenedioxymethamphetamin e (MDMA) N 0 - 500 ng/ml Morphine (MOP 300/SIQ6466) N 0 - 300 ng/ml Methadone (MTD) N 0 - 300 ng/ml Phencyclidine (PCP) N 0 - 25 ng/ml Nortriptyline (TCA) N 0 - 1000 ng/ml Oxycodone N 0 - 300 ng/ml x N 0 - 300 ng/ml UDT Reviewed date:03/30/2024 10:48:21 AM Interpretation: Performing Lab: Notes/Report: THC NEG 0 - 50 ng/ml Cocaine NEG 0 - 300 ng/ml Amphetamine NEG 0 - 1000 ng/ml Buprenorphine (BUP) POS 0 - 10 ng/ml Secobarbital (Bar) NEG 0 - 300 ng/ml Oxazepam (BZO) NEG 0 - 300 ng/ml 1-ofxtulwmdx-7,3-ogvikyll-6, 3-diph enylpyrrolidine (EDDP) NEG 0 - 300 ng/ml Methamphetamine (MET) NEG 0 - 1000 ng/ml Methylenedioxymethamphetamin e (MDMA) NEG 0 - 500 ng/ml Morphine (MOP 300/LFD5952) NEG 0 - 300 ng/ml Methadone (MTD) NEG 0 - 300 ng/ml Phencyclidine (PCP) NEG 0 - 25 ng/ml Nortriptyline (TCA) NEG 0 - 1000 ng/ml Oxycodone NEG 0 - 300 ng/ml x NEG 0 - 300 ng/ml UDT Reviewed date:04/22/2024 08:45:23 AM Interpretation: Performing Lab: Notes/Report: THC N 0 - 50 ng/ml Cocaine N 0 - 300 ng/ml Amphetamine N 0 - 1000 ng/ml Buprenorphine (BUP) P 0 - 10 ng/ml Secobarbital (Bar) N 0 - 300 ng/ml Oxazepam (BZO) N 0 - 300 ng/ml 3-yylngivtem-3,1-thrvdulr-8, 3-diph enylpyrrolidine (EDDP) N 0 - 300 ng/ml Methamphetamine (MET) N 0 - 1000 ng/ml Methylenedioxymethamphetamin e (MDMA) N 0 - 500 ng/ml Morphine (MOP 300/MEQ8421) N 0 - 300 ng/ml Methadone (MTD) N 0 - 300 ng/ml Phencyclidine (PCP) N 0 - 25 ng/ml Nortriptyline (TCA) N 0 - 1000 ng/ml Oxycodone N 0 - 300 ng/ml x N 0 - 300 ng/ml UDT Reviewed date:09/01/2024 09:57:13 AM Interpretation: Performing Lab: Notes/Report: THC n 0 - 50 ng/ml Cocaine n 0 - 300 ng/ml Amphetamine n 0 - 1000 ng/ml Buprenorphine (BUP) p 0 - 10 ng/ml Secobarbital (Bar) n 0 - 300 ng/ml Oxazepam (BZO) n 0 - 300 ng/ml 0-yybfvihuup-1,0-kekinogs-5, 3-diph enylpyrrolidine (EDDP) n 0 - 300 ng/ml Methamphetamine (MET) n 0 - 1000 ng/ml Methylenedioxymethamphetamin e (MDMA) n 0 - 500 ng/ml Morphine (MOP 300/GPG5490) n 0 - 300 ng/ml Methadone (MTD) n 0 - 300 ng/ml Phencyclidine (PCP) n 0 - 25 ng/ml Nortriptyline (TCA) n 0 - 1000 ng/ml Oxycodone n 0 - 300 ng/ml x n 0 - 300 ng/ml UDT Reviewed date:06/24/2024 09:47:28 AM Interpretation: Performing Lab: Notes/Report: THC n 0 - 50 ng/ml Cocaine n 0 - 300 ng/ml Amphetamine n 0 - 1000 ng/ml Buprenorphine (BUP) p 0 - 10 ng/ml Secobarbital (Bar) n 0 - 300 ng/ml Oxazepam (BZO) n 0 - 300 ng/ml 3-ofrfecaqzf-5,7-ipytbpci-7, 3-diph enylpyrrolidine (EDDP) n 0 - 300 ng/ml Methamphetamine (MET) n 0 - 1000 ng/ml Methylenedioxymethamphetamin e (MDMA) n 0 - 500 ng/ml Morphine (MOP 300/NZN4400) n 0 - 300 ng/ml Methadone (MTD) n 0 - 300 ng/ml Phencyclidine (PCP) n 0 - 25 ng/ml Nortriptyline (TCA) n 0 - 1000 ng/ml Oxycodone n 0 - 300 ng/ml x n 0 - 300 ng/ml UDT Reviewed date:05/21/2024 09:49:25 AM Interpretation: Performing Lab: Notes/Report: THC N 0 - 50 ng/ml Cocaine N 0 - 300 ng/ml Amphetamine N 0 - 1000 ng/ml Buprenorphine (BUP) P 0 - 10 ng/ml Secobarbital (Bar) N 0 - 300 ng/ml Oxazepam (BZO) N 0 - 300 ng/ml 1-nqcfrkmjtt-8,3-omegoyof-2, 3-diph enylpyrrolidine (EDDP) N 0 - 300 ng/ml Methamphetamine (MET) N 0 - 1000 ng/ml Methylenedioxymethamphetamin e (MDMA) N 0 - 500 ng/ml Morphine (MOP 300/UKA2338) N 0 - 300 ng/ml Methadone (MTD) N 0 - 300 ng/ml Phencyclidine (PCP) N 0 - 25 ng/ml Nortriptyline (TCA) N 0 - 1000 ng/ml Oxycodone N 0 - 300 ng/ml x N 0 - 300 ng/ml UDT Reviewed date:07/29/2024 10:25:45 AM Interpretation: Performing Lab: Notes/Report: THC n 0 - 50 ng/ml Cocaine n 0 - 300 ng/ml Amphetamine n 0 - 1000 ng/ml Buprenorphine (BUP) p 0 - 10 ng/ml Secobarbital (Bar) n 0 - 300 ng/ml Oxazepam (BZO) n 0 - 300 ng/ml 1-uwbvuqpgzy-8,3-zkdxlzii-4, 3-diph enylpyrrolidine (EDDP) n 0 - 300 ng/ml Methamphetamine (MET) n 0 - 1000 ng/ml Methylenedioxymethamphetamin e (MDMA) n 0 - 500 ng/ml Morphine (MOP 300/MRP8279) n 0 - 300 ng/ml Methadone (MTD) n 0 - 300 ng/ml Phencyclidine (PCP) n 0 - 25 ng/ml Nortriptyline (TCA) n 0 - 1000 ng/ml Oxycodone n 0 - 300 ng/ml x n 0 - 300 ng/ml DRUG MONITOR,AMPHETAMINE, QN , URINE ([id number]) Reviewed date:11/06/2023 02:45:40 PM Interpretation: Performing Lab:Ely BARKERe1355 [facility] HospitalServandoQsblDD[address] Yoan Moreno Notes/Report: FASTING: NO Amphetamine NEGATIVE <250 ng/mL Methamphetamine NEGATIVE <250 ng/mL Amphetamines Comments See LD T Notes DRUG MONITOR, BENZO, QN, URI NE ([id number]) Reviewed date:11/06/2023 02:45:40 PM Interpretation: Performing Lab:MJ Yummy77-[facility] [address], [place] FcplOJ[address] Yoan Moreno Notes/Report: FASTING: NO Alphahydroxyalprazolam NEGATIVE <25 ng/mL Alphahydroxymidazolam NEGATIVE <50 ng/mL Alphahydroxytriazolam NEGATIVE <50 ng/mL Aminoclonazepam NEGATIVE <25 ng/mL Hydroxyethylflurazepam NEGATIVE <50 ng/mL Lorazepam NEGATIVE <50 ng/mL Nordiazepam NEGATIVE <50 ng/mL Oxazepam NEGATIVE <50 ng/mL Temazepam NEGATIVE <50 ng/mL Benzodiazepines Comments See LDT Notes DRUG MONITOR, METHADONE META B, QN, URINE ([id number]) Reviewed date:11/06/2023 02:45:40 PM Interpretation: Performing Lab:MJ, ROI [address] investmente[address], [place] ZvcoTG[address] Yoan Moreno Notes/Report: FASTING: NO EDDP NEGATIVE <100 ng/mL Methadone NEGATIVE <100 ng/mL Methadone Comments See LDT N otes DRUG MONITOR, OPIATES EXPAND ED, QN, URINE ([id number]) Reviewed date:11/06/2023 02:45:40 PM Interpretation: Performing Lab:MJ, Yummy77-[facility] [address], Children'S MinnesotaXcfuFR[address] Yoan Moreno Notes/Report: FASTING: NO Codeine NEGATIVE <50 ng/mL Hydrocodone NEGATIVE <50 ng/mL Hydromorphone NEGATIVE <50 ng/mL Morphine NEGATIVE <50 ng/mL Norhydrocodone NEGATIVE <50 ng/mL Opiates Comments See LDT Not es Noroxycodone NEGATIVE <50 ng/mL Oxycodone NEGATIVE <50 ng/mL Oxymorphone NEGATIVE <50 ng/mL Oxycodone Comments See LDT N otes DRUG MONITOR, FENTANYL, QN, URINE ([id number]) Reviewed date:11/06/2023 02:45:40 PM Interpretation: Performing Lab:MJ, Yummy77-[facility] [address], [place] GroupeEyvkUT[address] Yoan Moreno Notes/Report: FASTING: NO Fentanyl NEGATIVE <0.5 ng/mL Norfentanyl NEGATIVE <0.5 ng/mL Fentanyl Comments See LDT No hudson DRUG MONITOR, BUP AND NALOXO NE,QN,URINE ([id number]) Reviewed date:11/06/2023 02:45:40 PM Interpretation: Performing Lab:MJ Yummy77-[facility] [address] [facility], [facility] HospitalTbvwBI[address] Yoan Moreno Notes/Report: FASTING: NO Buprenorphine 33 <2 ng/mL Norbuprenorphine 158 <2 ng/mL Naloxone 31 <2 ng/mL Buprenorphine Comments See B uprenorphine Notes, LDT Notes DRUG MONITOR, NALTREXONE, QN , URIN ([id number]) Reviewed date:11/06/2023 02:45:40 PM Interpretation: Performing Lab:AT, [employer]-Ugebogd4496 [facility] CenterA[address] [address] Daniel Be, Director - [address] [facility] HospitalYummy77[facility] Notes/Report: FASTING: NO Naltrexone NEGATIVE <5 ng/mL 6 Beta Naltrexol NEGATIVE <5 ng/mL Naltrexone Comments See LDT Notes Notes and Comments these results should be used only by healthcare providers to render diagnosis or treatment, or to monitor progress of medical conditions. Buprenorphine Notes: Buprenorphine, Norbuprenorphine detected is consistent with the use of the drug(s) Buprenorphine or Buprenorphine with Naloxone. Naloxone may be negative due to poor oral bioavailability and/or short half-life. Buprenorphine, Norbuprenorphine, Naloxone detected is consistent with the use of the drug Buprenorphine and Naloxone. LDT Notes: Confirmation tests were developed and their analytical performance characteristics have been determined by [email or web address]. It has not been cleared or approved by the FDA. This assay has been validated pursuant to the CLIA regulations and is used for clinical purposes. Healthcare Providers needing Interpretation assistance, please contact us at [phone] ( ) M-F, 8am to 10pm EST This drug testing is for medical treatment only. Analysis was performed as non-forensic testing and DRUG MONITOR,AMPHETAMINE, QN , URINE ([id number]) Reviewed date:12/08/2023 04:50:01 PM Interpretation: Performing Lab:MJ, Yummy77-Serv[address], Children'S MinnesotaFdqaZB[address] Yoan Moreno Notes/Report: FASTING: UNKNOWN Amphetamine NEGATIVE <250 ng/mL Methamphetamine NEGATIVE <250 ng/mL Amphetamines Comments See LD T Notes DRUG MONITOR, BENZO, QN, URI NE ([id number]) Reviewed date:12/08/2023 04:50:01 PM Interpretation: Performing Lab:MJ, Yummy77-[address], IAT-AutoUgmvUY[address] Yoan Moreno Notes/Report: FASTING: UNKNOWN Alphahydroxyalprazolam NEGATIVE <25 ng/mL Alphahydroxymidazolam NEGATIVE <50 ng/mL Alphahydroxytriazolam NEGATIVE <50 ng/mL Aminoclonazepam NEGATIVE <25 ng/mL Hydroxyethylflurazepam NEGATIVE <50 ng/mL Lorazepam NEGATIVE <50 ng/mL Nordiazepam NEGATIVE <50 ng/mL Oxazepam NEGATIVE <50 ng/mL Temazepam NEGATIVE <50 ng/mL Benzodiazepines Comments See LDT Notes DRUG MONITOR, OPIATES, W/CON F, URINE ([id number]) Reviewed date:12/08/2023 04:50:01 PM Interpretation: Performing Lab:MJ [employer] Alyssa-Ruby [address] [employer], IAT-AutoNteyIE[address] Yoan Moreno, Director - [id number] [facility] CenterVidRocket [facility] Notes/Report: FASTING: UNKNOWN Opiates NEGATIVE <100 ng/mL Notes and Comments LDT Notes: Confirmation tests were developed and their analytical performance characteristics have been determined by [email or web address]. It has not been cleared or approved by the FDA. This assay has been validated pursuant to the CLIA regulations and is used for clinical purposes. Healthcare Providers needing Interpretation assistance, please contact us at [phone] ( ) M-F, 8am to 10pm EST This drug testing is for medical treatment only. Analysis was performed as non-forensic testing and these results should be used only by healthcare providers to render diagnosis or treatment, or to monitor progress of medical conditions. Note A: The above test was performed; however, analysis of this sample indicates a drug/chemical interference with the assay. We are unable to report a quantitative value. Buprenorphine Notes: Buprenorphine detected is consistent with the use of the drug(s) Buprenorphine or Buprenorphine with Naloxone. Naloxone may be negative due to poor oral bioavailability and/or short half-life. Buprenorphine, Naloxone detected is consistent with the use of the drug Buprenorphine and Naloxone The metabolite Norbuprenorphine is not present at or above the cutoff. DRUG MONITOR, OPIATES EXPAND ED, QN, URINE ([id number]) Reviewed date:12/08/2023 04:50:01 PM Interpretation: Performing Lab:MJ Yummy77-[address], [place] HmnhGY[address] Yoan Moreno Notes/Report: FASTING: UNKNOWN Codeine NEGATIVE <50 ng/mL Hydrocodone NEGATIVE <50 ng/mL Hydromorphone NEGATIVE <50 ng/mL Morphine NEGATIVE <50 ng/mL Norhydrocodone NEGATIVE <50 ng/mL Opiates Comments See LDT Not es Noroxycodone NEGATIVE <50 ng/mL Oxycodone NEGATIVE <50 ng/mL Oxymorphone NEGATIVE <50 ng/mL Oxycodone Comments See LDT N otes DRUG MONITOR, FENTANYL, QN, URINE ([id number]) Reviewed date:12/08/2023 04:50:01 PM Interpretation: Performing Lab:MJ Yummy77-[address], IAT-AutoNmaoGB[address] Yoan Moreno Notes/Report: FASTING: UNKNOWN Fentanyl NEGATIVE <0.5 ng/mL Norfentanyl NEGATIVE <0.5 ng/mL Fentanyl Comments See LDT No hudson DRUG MONITOR, BUP AND NALOXO NE,QN,URINE ([id number]) Reviewed date:12/08/2023 04:50:01 PM Interpretation: Performing Lab:MJ Yummy77-[facility] [address], IAT-AutoLfkvID[address] Yoan Moreno Notes/Report: FASTING: UNKNOWN Buprenorphine 26 <2 ng/mL Norbuprenorphine INTERFERENCE <2 ng/mL See Note A See Note A Naloxone 36 <2 ng/mL Buprenorphine Comments See B uprenorphine Notes, LDT Notes DRUG MONITOR,AMPHETAMINE, QN , URINE ([id number]) Reviewed date:02/26/2024 09:59:47 AM Interpretation: Performing Lab:MJ Yummy77-[address], IAT-AutoBkwtCU[address] Yoan Moreno Notes/Report: FASTING: NO Amphetamine NEGATIVE <250 ng/mL Methamphetamine NEGATIVE <250 ng/mL Amphetamines Comments See LD T Notes DRUG MONITOR, BENZO, QN, URI NE ([id number]) Reviewed date:02/26/2024 09:59:47 AM Interpretation: Performing Lab:MJ, Yummy77-[address], [place] GcsdHN[address] Yoan Moreno Notes/Report: FASTING: NO Alphahydroxyalprazolam NEGATIVE <25 ng/mL Alphahydroxymidazolam NEGATIVE <50 ng/mL Alphahydroxytriazolam NEGATIVE <50 ng/mL Aminoclonazepam NEGATIVE <25 ng/mL Hydroxyethylflurazepam NEGATIVE <50 ng/mL Lorazepam NEGATIVE <50 ng/mL Nordiazepam NEGATIVE <50 ng/mL Oxazepam NEGATIVE <50 ng/mL Temazepam NEGATIVE <50 ng/mL Benzodiazepines Comments See LDT Notes DRUG MONITOR, FENTANYL, QN, URINE ([id number]) Reviewed date:02/25/2024 08:01:51 AM Interpretation: Performing Lab:MJ, [employer] [facility] [address], [place] PrgyGM[address] Yoan Moreno, Director - [address] [facility] HospitalYummy77-[place] Notes/Report: FASTING: NO Fentanyl NEGATIVE <0.5 ng/mL Norfentanyl NEGATIVE <0.5 ng/mL Fentanyl Comments See LDT No hudson Notes and Comments This drug testing is for medical treatment only. Analysis was performed as non-forensic testing and these results should be used only by healthcare providers to render diagnosis or treatment, or to monitor progress of medical conditions. Note A: The above test was performed; however, analysis of this sample indicates a drug/chemical interference with the assay. We are unable to report a quantitative value. Buprenorphine Notes: Buprenorphine detected is consistent with the use of the drug(s) Buprenorphine or Buprenorphine with Naloxone. Naloxone may be negative due to poor oral bioavailability and/or short half-life. Buprenorphine, Naloxone detected is consistent with the use of the drug Buprenorphine and Naloxone The metabolite Norbuprenorphine is not present at or above the cutoff. LDT Notes: Confirmation tests were developed and their analytical performance characteristics have been determined by [email or web address]. It has not been cleared or approved by the FDA. This assay has been validated pursuant to the CLIA regulations and is used for clinical purposes. Healthcare Providers needing Interpretation assistance, please contact us at [phone] ( ) M-F, 8am to 10pm EST DRUG MONITOR, BUP AND NALOXO NE,QN,URINE ([id number]) Reviewed date:02/26/2024 09:59:47 AM Interpretation: Performing Lab:Ely BARKER [facility]-Servando [address] Ayanna Gaines Servando WeiZcqgOX[address] Yoan Moreno Notes/Report: FASTING: NO Buprenorphine 25 <2 ng/mL Norbuprenorphine INTERFERENCE <2 ng/mL See Note A See Note A Naloxone 27 <2 ng/mL Buprenorphine Comments See B uprenorphine Notes, LDT Notes TEST IN QUESTION- [facility] ([id number]) Reviewed date:02/25/2024 08:01:51 AM Interpretation: Performing Lab:TAMARA Yummy77-Zahwhj[address] Raghav Gaines, XrziboNA[address] Perez Peters MD Notes/Report: FASTING: NO QUESTION/PROBLEM: There is a question regarding the following specimen submitted and/or the test requested. QUESTION: Verify duplicate Drug Testing. Please contact [email or web address] to verify the urine drug screens needed for this patient as two of the tests ordered (codes [id number] and [id number]) contain duplicate testing and therefore cannot be ordered on the same requisition. CONTACT: COMMENT REQUESTED INFORMATION AUTHORIZED SIGNATURE TO PREVENT FURTHER DELAYS IN TESTING, PLEASE COMPLETE INFORMATION ABOVE AND FAX TO [phone] TO RESOLVE THIS ORDER. SPECIMEN ID NOTIFICATION RONA HINKLE ID ([id number]) Reviewed date:02/26/2024 09:59:47 AM Interpretation: Performing Lab:Ely MCDONALD-Btkgqq89596 Raghav Gaines, BmfgvfMN[address] Perez Peters MD Notes/Report: FASTING: NO COMMENT: Specimen labels must include two forms of patient ID. Only one unique identifier was present on the sample(s). The testing you requested will be processed; however, going forward please provide two identifiers as required by the [employer] (CAP). DRUG MONITOR, FENTANYL, QN, URINE ([id number]) Reviewed date:02/26/2024 09:59:47 AM Interpretation: Performing Lab:Ely BARKER-Servando [address], Servando McraeUbpbHL[address] Yoan Moreno, Director - [address] [facility] Notes/Report: FASTING: NO Fentanyl NEGATIVE <0.5 ng/mL Norfentanyl NEGATIVE <0.5 ng/mL Fentanyl Comments See LDT No hudson Notes and Comments PRELIM This drug testing is for medical treatment only. Analysis was performed as non-forensic testing and these results should be used only by healthcare providers to render diagnosis or treatment, or to monitor progress of medical conditions. LDT Notes: Confirmation tests were developed and their analytical performance characteristics have been determined by [email or web address]. It has not been cleared or approved by the FDA. This assay has been validated pursuant to the CLIA regulations and is used for clinical purposes. Healthcare Providers needing Interpretation assistance, please contact us at [phone] ( ) M-F, 8am to 10pm EST Patient Historical Report PENDING DRUG MONITOR, FENTANYL, QN, URINE ([id number]) Reviewed date:02/26/2024 09:59:47 AM Interpretation: Performing Lab:Ely BARKER-Servando [address], Servando WeiEuyxQU[address] Yoan Moreno, Director - [address] Raghav Switchboarda Notes/Report: FASTING: NO Notes and Comments PRELIM This drug testing is for medical treatment only. Analysis was performed as non-forensic testing and these results should be used only by healthcare providers to render diagnosis or treatment, or to monitor progress of medical conditions. LDT Notes: Confirmation tests were developed and their analytical performance characteristics have been determined by [email or web address]. It has not been cleared or approved by the FDA. This assay has been validated pursuant to the CLIA regulations and is used for clinical purposes. Healthcare Providers needing Interpretation assistance, please contact us at [phone] ( ) M-F, 8am to 10pm EST Patient Historical Report PENDING DRUG MONITOR, FENTANYL, QN, URINE ([id number]) Reviewed date:02/26/2024 09:59:47 AM Interpretation: Performing Lab:Ely BARKER-Servando Peae[address]05 [facility] Center[facility]da Gaines, Servando WeiRvmzEC[address] Yoan Moreno, Director - [address] Raghav GainesYummy77-[place] Notes/Report: FASTING: NO Notes and Comments PRELIM This drug testing is for medical treatment only. Analysis was performed as non-forensic testing and these results should be used only by healthcare providers to render diagnosis or treatment, or to monitor progress of medical conditions. LDT Notes: Confirmation tests were developed and their analytical performance characteristics have been determined by [email or web address]. It has not been cleared or approved by the FDA. This assay has been validated pursuant to the CLIA regulations and is used for clinical purposes. Healthcare Providers needing Interpretation assistance, please contact us at [phone] ( ) M-F, 8am to 10pm EST Patient Historical Report PENDING TEST IN QUESTION- [facility] ([id number]) Reviewed date:02/26/2024 09:59:47 AM Interpretation: Performing Lab:TAMARA Yummy77-Goteci[address]300 Raghav Gaines, EyevrkZA[address] Perez Peters MD Notes/Report: FASTING: NO QUESTION/PROBLEM: There is a question regarding the following specimen submitted and/or the test requested. QUESTION: Verify duplicate Drug Testing. Please contact [email or web address] to verify the urine drug screens needed for this patient as two of the tests ordered (codes [id number] and [id number]) contain duplicate testing and therefore cannot be ordered on the same requisition. CONTACT: COMMENT REQUESTED INFORMATION AUTHORIZED SIGNATURE TO PREVENT FURTHER DELAYS IN TESTING, PLEASE COMPLETE INFORMATION ABOVE AND FAX TO [phone] TO RESOLVE THIS ORDER. SPECIMEN ID NOTIFICATION MIS SING SECOND ID ([id number]) Reviewed date:02/26/2024 09:59:47 AM Interpretation: Performing Lab:Ely MCDONALD [facility]-Vmowtb93480 Raghav Gaines, FxcmsgSF[address] Perez Peters MD Notes/Report: FASTING: NO COMMENT: Specimen labels must include two forms of patient ID. Only one unique identifier was present on the sample(s). The testing you requested will be processed; however, going forward please provide two identifiers as required by the [employer] ([employer]). DRUG MONITOR,AMPHETAMINE, QN , URINE ([id number]) Reviewed date:02/26/2024 09:59:47 AM Interpretation: Performing Lab:Ely [facility] [address], [place] GfvwXC[address] Yoan Moreno Notes/Report: FASTING: NO Amphetamine NEGATIVE <250 ng/mL Methamphetamine NEGATIVE <250 ng/mL Amphetamines Comments See CHARU T Notes DRUG MONITOR, BENZO, QN, URI NE ([id number]) Reviewed date:02/26/2024 09:59:47 AM Interpretation: Performing Lab:CB, [facility] [address], [place] VfwwMG[address] Yoan Moreno Notes/Report: FASTING: NO DRUG MONITOR, BUP AND NALOXO NE,QN,URINE ([id number]) Reviewed date:02/26/2024 09:59:47 AM Interpretation: Performing Lab:CB, [facility] [address], Children'S MinnesotaDjexMX[address] Yoan Moreno Notes/Report: FASTING: NO DRUG MONITOR, BUP AND NALOXO NE,QN,URINE ([id number]) Reviewed date:02/26/2024 09:59:47 AM Interpretation: Performing Lab:CB, [facility] [address], [place] AgmrKG[address] Yoan Moreno Notes/Report: FASTING: NO TEST IN QUESTION- [facility] ([id number]) Reviewed date:02/26/2024 09:59:47 AM Interpretation: Performing Lab:KS, [facility]-[address]bp[address], EjeomwBB[address] Perez Peters MD Notes/Report: FASTING: NO QUESTION/PROBLEM: There is a question regarding the following specimen submitted and/or the test requested. QUESTION: Verify duplicate Drug Testing. Please contact [email or web address] to verify the urine drug screens needed for this patient as two of the tests ordered (codes [id number] and [id number]) contain duplicate testing and therefore cannot be ordered on the same requisition. CONTACT: COMMENT REQUESTED INFORMATION AUTHORIZED SIGNATURE TO PREVENT FURTHER DELAYS IN TESTING, PLEASE COMPLETE INFORMATION ABOVE AND FAX TO [phone] TO RESOLVE THIS ORDER. DRUG MONITOR, BENZO, QN, URI NE ([id number]) Reviewed date:03/30/2024 04:05:31 PM Interpretation: Performing Lab:MJ [facility] [address], [place] WeiQzhnKG[address] Yoan Moreno Notes/Report: FASTING: NO SPECIMEN ID NOTIFICATION MIS SING SECOND ID ([id number]) Reviewed date:03/30/2024 04:05:31 PM Interpretation: Performing Lab:Ely MCDONALD-Zxuhfb[address] Gaines, AakofmRW[address] Perez Peters MD Notes/Report: FASTING: NO COMMENT: Specimen labels must include two forms of patient ID. Only one unique identifier was present on the sample(s). The testing you requested will be processed; however, going forward please provide two identifiers as required by the [employer] ([employer]). DRUG MONITOR,AMPHETAMINE, QN , URINE ([id number]) Reviewed date:03/30/2024 04:05:31 PM Interpretation: Performing Lab:MJ [facility] [address], [place] MznkQE[address] Yoan Moreno Notes/Report: FASTING: NO Amphetamine NEGATIVE <250 ng/mL Methamphetamine NEGATIVE <250 ng/mL Amphetamines Comments See CHARU T Notes DRUG MONITOR,AMPHETAMINE, W/ DL, QN URINE ([id number]) Reviewed date:02/23/2024 09:16:34 AM Interpretation: Performing Lab:Ely [facility] [address], [place] UoraLC[address] Yoan Moreno, Director - [phone] [facility] Notes/Report: FASTING: NO Amphetamine NEGATIVE <250 ng/mL Methamphetamine NEGATIVE <250 ng/mL Amphetamines Comments See LD T Notes Notes and Comments This drug testing is for medical treatment only. Analysis was performed as non-forensic testing and these results should be used only by healthcare providers to render diagnosis or treatment, or to monitor progress of medical conditions. Note A: The above test was performed; however, analysis of this sample indicates a drug/chemical interference with the assay. We are unable to report a quantitative value. Buprenorphine Notes: Buprenorphine detected is consistent with the use of the drug(s) Buprenorphine or Buprenorphine with Naloxone. Naloxone may be negative due to poor oral bioavailability and/or short half-life. Buprenorphine, Naloxone detected is consistent with the use of the drug Buprenorphine and Naloxone The metabolite Norbuprenorphine is not present at or above the cutoff. LDT Notes: Confirmation tests were developed and their analytical performance characteristics have been determined by [email or web address]. It has not been cleared or approved by the FDA. This assay has been validated pursuant to the CLIA regulations and is used for clinical purposes. Healthcare Providers needing Interpretation assistance, please contact us at [phone] ( ) M-F, 8am to 10pm EST DRUG MONITOR, BENZO, QN, UR INE ([id number]) Reviewed date:02/23/2024 09:16:34 AM Interpretation: Performing Lab:MJ [facility] [email or web address], [place] GroupeHhmvRK[address] Yoan Moreno Notes/Report: FASTING: NO Alphahydroxyalprazolam NEGATIVE <25 ng/mL Alphahydroxymidazolam NEGATIVE <50 ng/mL Alphahydroxytriazolam NEGATIVE <50 ng/mL Aminoclonazepam NEGATIVE <25 ng/mL Hydroxyethylflurazepam NEGATIVE <50 ng/mL Lorazepam NEGATIVE <50 ng/mL Nordiazepam NEGATIVE <50 ng/mL Oxazepam NEGATIVE <50 ng/mL Temazepam NEGATIVE <50 ng/mL Benzodiazepines Comments See LDT Notes DRUG MONITOR, MARIJUANA META B, QN, URINE ([id number]) Reviewed date:02/23/2024 09:16:34 AM Interpretation: Performing Lab:MJ [facility] [address], [place] GroupeOeksHV[address] Yoan Moreno Notes/Report: FASTING: NO Marijuana Metabolite NEGATIVE <5 ng/mL Marijuana Comments See LDT N otes DRUG MONITOR, METHADONE META B, QN, URINE ([id number]) Reviewed date:02/23/2024 09:16:34 AM Interpretation: Performing Lab:MJ, [facility] [address], IAT-AutoPnjzBX[address] Yoan Moreno Notes/Report: FASTING: NO EDDP NEGATIVE <100 ng/mL Methadone NEGATIVE <100 ng/mL Methadone Comments See LDT N otes DRUG MONITOR, OPIATES EXPAND ED, QN, URINE ([id number]) Reviewed date:02/23/2024 09:16:34 AM Interpretation: Performing Lab:MJ [facility]-[address], IAT-AutoTyskKL[address] Yoan Moreno Notes/Report: FASTING: NO Codeine NEGATIVE <50 ng/mL Hydrocodone NEGATIVE <50 ng/mL Hydromorphone NEGATIVE <50 ng/mL Morphine NEGATIVE <50 ng/mL Norhydrocodone NEGATIVE <50 ng/mL Opiates Comments See LDT Not es Noroxycodone NEGATIVE <50 ng/mL Oxycodone NEGATIVE <50 ng/mL Oxymorphone NEGATIVE <50 ng/mL Oxycodone Comments See LDT N otes DRUG MONITOR, FENTANYL, QN, URINE ([id number]) Reviewed date:02/23/2024 09:16:34 AM Interpretation: Performing Lab:MJ [facility] [address], IAT-AutoOairKG[address] Yoan Moreno Notes/Report: FASTING: NO Fentanyl NEGATIVE <0.5 ng/mL Norfentanyl NEGATIVE <0.5 ng/mL Fentanyl Comments See LDT No hudson DRUG MONITOR, BUP AND NALOXO NE,QN,URINE ([id number]) Reviewed date:02/23/2024 09:16:34 AM Interpretation: Performing Lab:MJ [facility] [address], IAT-AutoVhyiCW[address] Yoan Moreno Notes/Report: FASTING: NO Buprenorphine 40 <2 ng/mL Norbuprenorphine INTERFERENCE <2 ng/mL See Note A See Note A Naloxone 106 <2 ng/mL Buprenorphine Comments See B uprenorphine Notes, LDT Notes DRUG MONITOR, MDMA/MDA, QN, URINE ([id number]) Reviewed date:02/23/2024 09:16:34 AM Interpretation: Performing Lab:CB, [facility] [address], [place] UbyjYX[address] Yoan Moreno Notes/Report: FASTING: NO MDA NEGATIVE <200 ng/mL MDMA NEGATIVE <200 ng/mL MDMA Comments See LDT Notes DRUG MONITOR, HEROIN METAB, QN, URINE ([id number]) Reviewed date:02/23/2024 09:16:34 AM Interpretation: Performing Lab:CB, [facility] [address], [place] MgsfYY[address] Yoan Moreno Notes/Report: FASTING: NO 6 Acetylmorphine NEGATIVE <10 ng/mL Heroin Metab Comments See LD T Notes DRUG MONITOR, COCAINE METAB, QN, URINE ([id number]) Reviewed date:02/23/2024 09:16:34 AM Interpretation: Performing Lab:CB, [facility] [address], [place] GroupeZuayTD[address] Yoan Moreno Notes/Report: FASTING: NO Benzoylecgonine NEGATIVE <100 ng/mL Cocaine Comments See LDT Not es DRUG MONITOR, NALTREXONE, QN , URIN ([id number]) Reviewed date:02/23/2024 09:16:34 AM Interpretation: Performing Lab:AT, [facility]-Djuojwz[address] [facility] [address] Be Notes/Report: FASTING: NO Naltrexone NEGATIVE <5 ng/mL 6 Beta Naltrexol NEGATIVE <5 ng/mL Naltrexone Comments See LDT Notes Benzodiazepines Reviewed date:04/02/2024 10:09:19 AM Interpretation: Performing Lab:, [facility], [address] [place] [address], Director - [id number] Notes/Report: An exception occurred while processing this report and so it has incomplete data. Please contact [employer] for assistance. Not Medicated Consistent Not Medicated Consistent Not Medicated Consistent Not Medicated Consistent Not Medicated Consistent Not Medicated Consistent Not Medicated Consistent Not Medicated Consistent Not Medicated Consistent Not Medicated Consistent 7-Aminoclonazepam NEGATIVE 20.0 ng/mL Temazepam NEGATIVE 40.0 ng/mL Oxazepam NEGATIVE 40.0 ng/mL Midazolam NEGATIVE 40.0 ng/mL Lorazepam NEGATIVE 40.0 ng/mL Nordiazepam NEGATIVE 40.0 ng/mL Diazepam NEGATIVE 40.0 ng/mL Clonazepam NEGATIVE 20.0 ng/mL Hydroxyalprazolam NEGATIVE 20.0 ng/mL Alprazolam NEGATIVE 20.0 ng/mL PDF Report CE_OUT_RAW_COMMON _SRC_ORU Naltrexone Reviewed date:04/02/2024 10:09:19 AM Interpretation: Performing Lab: Notes/Report: Not Medicated Consistent Naltrexone NEGATIVE 50.0 ng/mL Stimulants Reviewed date:04/02/2024 10:09:19 AM Interpretation: Performing Lab: Notes/Report: Phentermine NEGATIVE 100.0 ng/mL Not Medicated Consistent Methylphenidate NEGATIVE 50.0 ng/mL Not Medicate d Consistent Methamphetamine NEGATIVE 100.0 ng/mL Not Medicate d Consistent Amphetamine NEGATIVE 100.0 ng/mL Not Medicated Consistent Illicits Reviewed date:04/02/2024 10:09:19 AM Interpretation: Performing Lab: Notes/Report: THCCOOH NEGATIVE 15.0 ng/mL Not Medicated Consistent PCP NEGATIVE 20.0 ng/mL Not Medicated Consistent MDMA NEGATIVE 50.0 ng/mL Not Medicated Consistent MDEA NEGATIVE 50.0 ng/mL Not Medicated Consistent MDA NEGATIVE 50.0 ng/mL Not Medicated Consistent Cocaine Metabolite NEGATIVE 20.0 ng/mL Not Medic ated Consistent 6-BARBARA NEGATIVE 10.0 ng/mL Not Medicated Consistent Opiates Reviewed date:04/02/2024 10:09:19 AM Interpretation: Performing Lab: Notes/Report: Noroxycodone NEGATIVE 50.0 ng/mL Not Medicated Consistent Norhydrocodone NEGATIVE 50.0 ng/mL Not Medicated Consistent Oxycodone NEGATIVE 50.0 ng/mL Not Medicated Consistent Hydromorphone NEGATIVE 50.0 ng/mL Not Medicated Consistent Hydrocodone NEGATIVE 50.0 ng/mL Not Medicated Consistent Morphine NEGATIVE 50.0 ng/mL Not Medicated Consistent Oxymorphone NEGATIVE 50.0 ng/mL Not Medicated Consistent Codeine NEGATIVE 50.0 ng/mL Not Medicated Consistent Buprenorphine Reviewed date:04/02/2024 10:09:19 AM Interpretation: Performing Lab: Notes/Report: Buprenorphine 44.1 10.0 ng/mL Medicated Cons istent Fentanyl Reviewed date:04/02/2024 10:09:19 AM Interpretation: Performing Lab: Notes/Report: Fentanyl NEGATIVE 2.0 ng/mL Not Medicated Consistent Methadone Reviewed date:04/02/2024 10:09:19 AM Interpretation: Performing Lab: Notes/Report: Methadone NEGATIVE 50.0 ng/mL Not Medicated Consistent Seroquel Reviewed date:04/02/2024 10:09:19 AM Interpretation: Performing Lab: Notes/Report: DRUG MONITOR, BUP AND NALOXO NE,QN,URINE ([id number]) Reviewed date:05/03/2024 08:53:43 AM Interpretation: Performing Lab:CB, [facility] [address], Children'[facility] MinnesotaQuivRD[address] Yoan Moreno, Director - [address] [facility] Notes/Report: FASTING: NO Buprenorphine 32 <2 ng/mL medMATCH Buprenorphine CONSISTENT Norbuprenorphine INTERFERENCE <2 ng/mL See Note A See Note A Naloxone 53 <2 ng/mL medMATCH Naloxone CONSISTENT Buprenorphine Comments See B uprenorphine Notes, LDT Notes Notes and Comments This drug testing is for medical treatment only. Analysis was performed as non-forensic testing and these results should be used only by healthcare providers to render diagnosis or treatment, or to monitor progress of medical conditions. Note A: The above test was performed; however, analysis of this sample indicates a drug/chemical interference with the assay. We are unable to report a quantitative value. Buprenorphine Notes: Buprenorphine detected is consistent with the use of the drug(s) Buprenorphine or Buprenorphine with Naloxone. Naloxone may be negative due to poor oral bioavailability and/or short half-life. Buprenorphine, Naloxone detected is consistent with the use of the drug Buprenorphine and Naloxone The metabolite Norbuprenorphine is not present at or above the cutoff. LDT Notes: Confirmation tests were developed and their analytical performance characteristics have been determined by [email or web address]. It has not been cleared or approved by the FDA. This assay has been validated pursuant to the CLIA regulations and is used for clinical purposes. medMATCH(R) enables providers to identify if drug use is consistent or inconsistent with a corresponding prescribed medication(s) list. Healthcare Providers needing Interpretation assistance, please contact us at [phone] ( ) M-F, 8am to 10pm EST PRESCRIBED DRUGS, medMATCH(R ) ([id number]) Reviewed date:05/03/2024 08:53:43 AM Interpretation: Performing Lab:T[facility]-Ejejym[address] Raghav [address]aines, PxyikjJH[address] Perez Peters MD Notes/Report: FASTING: NO medMATCH Summary Prescribed Prescribed Not Prescribed Consistent Inconsistent Inconsistent Suboxone(TM) Prescribed Drug 1 Suboxone(TM) Validity Testing Reviewed date:05/31/2024 12:45:02 PM Interpretation: Performing Lab: Notes/Report: Not Medicated Consistent Not Medicated Consistent Not Medicated Consistent Not Medicated Consistent Specific Pingree 1.013 1.003 - 1.030 pH 5.7 3.0 - 10.9 Oxidants -10 200 g/mL Creatinine 67.8 20.0 - 300.0 mg/dL Benzodiazepines Reviewed date:05/31/2024 12:45:02 PM Interpretation: Performing Lab: [facility], [address] [place] [address], Director - [id number] Notes/Report: An exception occurred while processing this report and so it has incomplete data. Please contact [employer] for assistance. Not Medicated Consistent Not Medicated Consistent Not Medicated Consistent Not Medicated Consistent Not Medicated Consistent Not Medicated Consistent Not Medicated Consistent Not Medicated Consistent Not Medicated Consistent Not Medicated Consistent 7-Aminoclonazepam NEGATIVE 20.0 ng/mL Temazepam NEGATIVE 40.0 ng/mL Oxazepam NEGATIVE 40.0 ng/mL Midazolam NEGATIVE 40.0 ng/mL Lorazepam NEGATIVE 40.0 ng/mL Nordiazepam NEGATIVE 40.0 ng/mL Diazepam NEGATIVE 40.0 ng/mL Clonazepam NEGATIVE 20.0 ng/mL Hydroxyalprazolam NEGATIVE 20.0 ng/mL Alprazolam NEGATIVE 20.0 ng/mL PDF Report CE_OUT_RAW_COMMON _SRC_ORU NEED PHYSICIAN SIGNATURE Reviewed date:05/31/2024 12:45:02 PM Interpretation: Performing Lab: Notes/Report: Naltrexone Reviewed date:05/31/2024 12:45:02 PM Interpretation: Performing Lab: Notes/Report: Not Medicated Consistent Naltrexone NEGATIVE 50.0 ng/mL Stimulants Reviewed date:05/31/2024 12:45:02 PM Interpretation: Performing Lab: Notes/Report: Phentermine NEGATIVE 100.0 ng/mL Not Medicated Consistent Methylphenidate NEGATIVE 50.0 ng/mL Not Medicate d Consistent Methamphetamine NEGATIVE 100.0 ng/mL Not Medicate d Consistent Amphetamine NEGATIVE 100.0 ng/mL Not Medicated Consistent Illicits Reviewed date:05/31/2024 12:45:02 PM Interpretation: Performing Lab: Notes/Report: THCCOOH NEGATIVE 15.0 ng/mL Not Medicated Consistent PCP NEGATIVE 20.0 ng/mL Not Medicated Consistent MDMA NEGATIVE 50.0 ng/mL Not Medicated Consistent MDEA NEGATIVE 50.0 ng/mL Not Medicated Consistent MDA NEGATIVE 50.0 ng/mL Not Medicated Consistent Cocaine Metabolite NEGATIVE 20.0 ng/mL Not Medic ated Consistent 6-BARBARA NEGATIVE 10.0 ng/mL Not Medicated Consistent Opiates Reviewed date:05/31/2024 12:45:02 PM Interpretation: Performing Lab: Notes/Report: Noroxycodone NEGATIVE 50.0 ng/mL Not Medicated Consistent Norhydrocodone NEGATIVE 50.0 ng/mL Not Medicated Consistent Oxycodone NEGATIVE 50.0 ng/mL Not Medicated Consistent Hydromorphone NEGATIVE 50.0 ng/mL Not Medicated Consistent Hydrocodone NEGATIVE 50.0 ng/mL Not Medicated Consistent Morphine NEGATIVE 50.0 ng/mL Not Medicated Consistent Oxymorphone NEGATIVE 50.0 ng/mL Not Medicated Consistent Codeine NEGATIVE 50.0 ng/mL Not Medicated Consistent Buprenorphine Reviewed date:05/31/2024 12:45:02 PM Interpretation: Performing Lab: Notes/Report: Buprenorphine 35.0 10.0 ng/mL Medicated Cons istent Fentanyl Reviewed date:05/31/2024 12:45:02 PM Interpretation: Performing Lab: Notes/Report: Fentanyl NEGATIVE 2.0 ng/mL Not Medicated Consistent Methadone Reviewed date:05/31/2024 12:45:02 PM Interpretation: Performing Lab: Notes/Report: Methadone NEGATIVE 50.0 ng/mL Not Medicated Consistent Validity Testing Reviewed date:07/04/2024 07:58:57 PM Interpretation: Performing Lab:1, [facility], [address] [facility], Director - [id number] Notes/Report: Not Medicated Consistent Not Medicated Consistent Not Medicated Consistent Not Medicated Consistent Specific Pingree 1.012 1.003 - 1.030 pH 5.6 3.0 - 10.9 Oxidants -11 200 g/mL Creatinine 70.5 20.0 - 300.0 mg/dL Seroquel Reviewed date:07/04/2024 07:58:57 PM Interpretation: Performing Lab: Notes/Report: An exception occurred while processing this report and so it has incomplete data. Please contact [employer] for assistance. PDF Report CE_OUT_RAW_COMMON _SRC_ORU Other Reviewed date:07/04/2024 07:58:57 PM Interpretation: Performing Lab: Notes/Report: Medicated Consistent Medicated Consistent Not Medicated Consistent Not Medicated Consistent Not Medicated Consistent Not Medicated Consistent Not Medicated Consistent Not Medicated Consistent Not Medicated Consistent Not Medicated Consistent Not Medicated Consistent Medicated Consistent Not Medicated Consistent Not Medicated Consistent Not Medicated Consistent Not Medicated Consistent Tapentadol NEGATIVE 50.0 ng/mL O-DM Tramadol NEGATIVE 50.0 ng/mL Zolpidem NEGATIVE 10.0 ng/mL Naltrexone NEGATIVE 50.0 ng/mL Naloxone NEGATIVE 50.0 ng/mL Meprobamate NEGATIVE 100.0 ng/mL Carisoprodol NEGATIVE 50.0 ng/mL Tramadol NEGATIVE 50.0 ng/mL EDDP NEGATIVE 50.0 ng/mL Methadone NEGATIVE 50.0 ng/mL Normeperidine NEGATIVE 20.0 ng/mL Meperidine NEGATIVE 50.0 ng/mL Norfentanyl NEGATIVE 5.0 ng/mL Fentanyl NEGATIVE 2.0 ng/mL Norbuprenorphine 170.9 20.0 ng/mL Buprenorphine 30.8 10.0 ng/mL Nicotine Reviewed date:07/04/2024 07:58:57 PM Interpretation: Performing Lab: Notes/Report: Not Medicated Inconsistent Nicotine >800 20.0 Validity Testing Reviewed date:08/08/2024 07:38:15 PM Interpretation: Performing Lab: Notes/Report: Not Medicated Consistent Not Medicated Consistent Not Medicated Consistent Not Medicated Consistent Specific Pingree 1.013 1.003 - 1.030 pH 5.5 3.0 - 10.9 Oxidants -11 200 g/mL Creatinine 55.0 20.0 - 300.0 mg/dL Buprenorphine Reviewed date:08/08/2024 07:38:15 PM Interpretation: Performing Lab: Notes/Report: Buprenorphine 34.1 10.0 ng/mL Medicated Cons istent Fentanyl Reviewed date:08/08/2024 07:38:15 PM Interpretation: Performing Lab: Notes/Report: Fentanyl NEGATIVE 2.0 ng/mL Not Medicated Consistent Methadone Reviewed date:08/08/2024 07:38:15 PM Interpretation: Performing Lab:Carlos [facility], [address] [place] [address], Director - [id number] Notes/Report: An exception occurred while processing this report and so it has incomplete data. Please contact [employer] for assistance. Methadone NEGATIVE 50.0 ng/mL Not Medicated Consistent PDF Report CE_OUT_RAW_COMMON _SRC_ORU Seroquel Reviewed date:08/08/2024 07:38:15 PM Interpretation: Performing Lab: Notes/Report: Norbuprenorphine Reviewed date:08/08/2024 07:38:15 PM Interpretation: Performing Lab: Notes/Report: Medicated Consistent Norbuprenorphine 141.4 20.0 ng/mL Reason For Referral No Information Medications Medication SIG (Take, Route, Frequency, Duration) Notes Start Date End Date Status Jardiance 25 MG Oral 06/27/2023 Act martha Atorvastatin Calcium 10 MG Oral 06/27/2023 Active ICOSAPENT ETHYL 1 GRAM CAPSULE *Reorder from Micrima for eRx and Interaction Alerts* 06/27/2023 Active Naproxen Sodium 550 MG Oral 06/27/2023 Active Latanoprost 0.005 % Ophthalmic 06/27/2023 Active Suboxone 8-2 MG 0.5 film under the tongue and allow to dissolve Sublingual Once a day; Duration: 30 days 09/01/2024 Active metFORMIN HCl 1000 MG Oral 06/27/2023 Active SEROquel 300 MG 1 tablet Oral at bedtime; Duration: 90 days Active Tamsulosin HCl 0.4 MG Oral 06/27/2023 Active Sildenafil Citrate 100 MG Oral 06/27/2023 Active Immunizations Vaccine Route Administration Date Status Comme nts Influenza virus vaccine, quadrivalent (IIV4), split virus, 0.25 mL dosage Unknown 11/17/2017 Administered Pfizer [employer] Covid-19 Vac cine 2nd dose Unknown 05/20/2020 Administered Pfizer [employer] Covid-19 Vac cine 2nd dose Unknown 06/10/2020 Administered Social History Tobacco Use: Social History Observation Description Date Details (start date - stop date) Current Smoker [birth year]27/1966 - NA Sex Assigned At : Social History Observation Description Sex Assigned At Male Household Question Answer Notes Marital status: Tobacco Control (Standard) Question Answer Notes Tobacco use: Current every day smoker When did you start smoking? 11/27/1966 How often do you smoke cigarettes? Every day How many cigarettes a day do you smoke? 5 or les s How soon after you wake up d o you smoke your first cigarette? 6-30 minutes Are you interested in quitting? Ready to quit AUDIT-C (Standard) Question Answer Notes Did you have a drink containing alcohol in the p ast year? 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 Vital Signs Heart Rate 91 /min 09/01/2024 Height-cm 162.56 cm 09/01/2024 Blood pressure diastolic 67 mm Hg 09/01/2024 Weight-kg 67.59 kg 09/01/2024 Height 64.00 in 09/01/2024 Blood pressure systolic 96 mm Hg 09/01/2024 Weight 149 lbs 09/01/2024 BMI 25.57 kg/m2 09/01/2024 Encounters Encounter Location Date Provider Diagnosis [facility] [address] [facility] [address] [place] [address] 09/18/2023 Annalisa Kurilla Insomnia due to othe r mental disorder F51.05 and Opioid dependence, uncomplicated F11.20 [facility] [address] [facility] [address] [place] [address] 10/22/2023 Annalisa Kurilla Insomnia due to othe r mental disorder F51.05 and Opioid dependence, uncomplicated F11.20 [facility] [address] [place] [address] 11/25/2023 Annalisa Kurilla Insomnia due to othe r mental disorder F51.05 and Opioid dependence, uncomplicated F11.20 [place] [id number] [facility] [address] [place] [address] 12/23/2023 Annalisa Kurilla Insomnia due to othe r mental disorder F51.05 and Opioid dependence, uncomplicated F11.20 [place] [address] [address] [facility] [address] [place] [address] 01/21/2024 Annalisa Kurilla Insomnia due to othe r mental disorder F51.05 and Opioid dependence, uncomplicated F11.[address] [address] 03/02/2024 Annalisa Kurilla Insomnia due to othe r mental disorder F51.05 ; Opioid dependence, uncomplicated F11.20 and Hypertension, unspecified type 401.9 [place] [address] [address] [address] 03/30/2024 Annalisa Kurilla Insomnia due to othe r mental disorder F51.05 and Opioid dependence, uncomplicated F11.20 [address] [address] [address] 04/22/2024 Annalisa Kurilla Insomnia due to othe r mental disorder F51.05 and Opioid dependence, uncomplicated F11.20 [place] [address] [address] 05/21/2024 Annalisa Kurilla Nicotine use Z72.0 ; Insomnia due to other mental disorder F51.05 ; Opioid dependence, uncomplicated F11.20 and Encounter for screening for cardiovascular disorders Z13.[address] [address] 06/24/2024 Annalisa Kurilla Insomnia due to othe r mental disorder F51.05 ; Opioid dependence, uncomplicated F11.20 ; Encounter for screening for cardiovascular disorders Z13.6 ; Negative depression screening Z13.31 and Nicotine use Z72.[address] [address] 07/29/2024 Annalisa Kurilla Nicotine use Z72.0 ; Opioid dependence, uncomplicated F11.20 ; Insomnia due to other mental disorder F51.05 ; Encounter for screening for cardiovascular disorders Z13.6 and Negative depression screening Z13.31 [facility] [address] [place] [address] 09/01/2024 Annalisa Ruiz Nicotine use Z72.0 ; Opioid dependence, uncomplicated F11.20 and Insomnia due to other mental disorder F51.05 [facility] [employer] [facility] [address] [place] [address] 07/23/2024 Annalisa Ruiz Opioid dependence, uncomplicated F11.20 Assessments Encounter Date Diagnosis (ICD Code) Assessment Notes Treatment Notes Treatment Clinical Notes Section Notes 09/18/2023 Insomnia due to other mental disorder (ICD-10 - F51.05) 10/22/2023 Insomnia due to other mental disorder (ICD-10 - F51.05) 11/25/2023 Insomnia due to other mental disorder (ICD-10 - F51.05) 12/23/2023 Insomnia due to other mental disorder (ICD-10 - F51.05) 01/21/2024 Insomnia due to other mental disorder (ICD-10 - F51.05) Second generation antipsychotics (SGAs) have metabolic syndrome issues with weight gain, increase in prolactin, increased waist circumference, increased lipids, and increased glucose. Thus routine monitoring of weight, metabolic labs, etc. is indicated. A general rank ordering of antipsychotics that have the greatest to the least risk of metabolic effects is olanzapine, quetiapine, risperidone, ziprasidone, and aripiprazole. However, weight gain can occur with all of these drugs and considerable variability exists among patients receiving the same drug regarding the risk of metabolic effects. Anti-psychotic agents not only increase the risk of metabolic disorder, they also increase the risk of CVA, akathisia, and movement disorders including EPS or tardive dyskinesia (more common with first generation antipsychotics) and more. 03/02/2024 Insomnia due to other mental disorder (ICD-10 - F51.05) Second generation antipsychotics (SGAs) have metabolic syndrome issues with weight gain, increase in prolactin, increased waist circumference, increased lipids, and increased glucose. Thus routine monitoring of weight, metabolic labs, etc. is indicated. A general rank ordering of antipsychotics that have the greatest to the least risk of metabolic effects is olanzapine, quetiapine, risperidone, ziprasidone, and aripiprazole. However, weight gain can occur with all of these drugs and considerable variability exists among patients receiving the same drug regarding the risk of metabolic effects. Anti-psychotic agents not only increase the risk of metabolic disorder, they also increase the risk of CVA, akathisia, and movement disorders including EPS or tardive dyskinesia (more common with first generation antipsychotics) and more. 03/30/2024 Insomnia due to other mental disorder (ICD-10 - F51.05) Second generation antipsychotics (SGAs) have metabolic syndrome issues with weight gain, increase in prolactin, increased waist circumference, increased lipids, and increased glucose. Thus routine monitoring of weight, metabolic labs, etc. is indicated. A general rank ordering of antipsychotics that have the greatest to the least risk of metabolic effects is olanzapine, quetiapine, risperidone, ziprasidone, and aripiprazole. However, weight gain can occur with all of these drugs and considerable variability exists among patients receiving the same drug regarding the risk of metabolic effects. Anti-psychotic agents not only increase the risk of metabolic disorder, they also increase the risk of CVA, akathisia, and movement disorders including EPS or tardive dyskinesia (more common with first generation antipsychotics) and more. 04/22/2024 Insomnia due to other mental disorder (ICD-10 - F51.05) Second generation antipsychotics (SGAs) have metabolic syndrome issues with weight gain, increase in prolactin, increased waist circumference, increased lipids, and increased glucose. Thus routine monitoring of weight, metabolic labs, etc. is indicated. A general rank ordering of antipsychotics that have the greatest to the least risk of metabolic effects is olanzapine, quetiapine, risperidone, ziprasidone, and aripiprazole. However, weight gain can occur with all of these drugs and considerable variability exists among patients receiving the same drug regarding the risk of metabolic effects. Anti-psychotic agents not only increase the risk of metabolic disorder, they also increase the risk of CVA, akathisia, and movement disorders including EPS or tardive dyskinesia (more common with first generation antipsychotics) and more. 05/21/2024 Nicotine use (ICD-10 - Z72.0) 06/24/2024 Opioid dependence, uncomplicated (ICD-10 - F11.20) 06/24/2024 Insomnia due to other mental disorder (ICD-10 - F51.05) Second generation antipsychotics (SGAs) have metabolic syndrome issues with weight gain, increase in prolactin, increased waist circumference, increased lipids, and increased glucose. Thus routine monitoring of weight, metabolic labs, etc. is indicated. A general rank ordering of antipsychotics that have the greatest to the least risk of metabolic effects is olanzapine, quetiapine, risperidone, ziprasidone, and aripiprazole. However, weight gain can occur with all of these drugs and considerable variability exists among patients receiving the same drug regarding the risk of metabolic effects. Anti-psychotic agents not only increase the risk of metabolic disorder, they also increase the risk of CVA, akathisia, and movement disorders including EPS or tardive dyskinesia (more common with first generation antipsychotics) and more. 07/23/2024 Opioid dependence, uncomplicated (ICD-10 - F11.20) 07/29/2024 Nicotine use (ICD-10 - Z72.0) 09/01/2024 Nicotine use (ICD-10 - Z72.0) 09/01/2024 Opioid dependence, uncomplicated (ICD-10 - F11.20) 09/01/2024 Insomnia due to other mental disorder (ICD-10 - F51.05) Second generation antipsychotics (SGAs) have metabolic syndrome issues with weight gain, increase in prolactin, increased waist circumference, increased lipids, and increased glucose. Thus routine monitoring of weight, metabolic labs, etc. is indicated. A general rank ordering of antipsychotics that have the greatest to the least risk of metabolic effects is olanzapine, quetiapine, risperidone, ziprasidone, and aripiprazole. However, weight gain can occur with all of these drugs and considerable variability exists among patients receiving the same drug regarding the risk of metabolic effects. Anti-psychotic agents not only increase the risk of metabolic disorder, they also increase the risk of CVA, akathisia, and movement disorders including EPS or tardive dyskinesia (more common with first generation antipsychotics) and more. 07/29/2024 Opioid dependence, uncomplicated (ICD-10 - F11.20) 06/24/2024 Encounter for screening for cardiovascular disorders (ICD-10 - Z13.6) 05/21/2024 Insomnia due to other mental disorder (ICD-10 - F51.05) Second generation antipsychotics (SGAs) have metabolic syndrome issues with weight gain, increase in prolactin, increased waist circumference, increased lipids, and increased glucose. Thus routine monitoring of weight, metabolic labs, etc. is indicated. A general rank ordering of antipsychotics that have the greatest to the least risk of metabolic effects is olanzapine, quetiapine, risperidone, ziprasidone, and aripiprazole. However, weight gain can occur with all of these drugs and considerable variability exists among patients receiving the same drug regarding the risk of metabolic effects. Anti-psychotic agents not only increase the risk of metabolic disorder, they also increase the risk of CVA, akathisia, and movement disorders including EPS or tardive dyskinesia (more common with first generation antipsychotics) and more. 03/30/2024 Opioid dependence, uncomplicated (ICD-10 - F11.20) 04/22/2024 Opioid dependence, uncomplicated (ICD-10 - F11.20) 03/02/2024 Opioid dependence, uncomplicated (ICD-10 - F11.20) 01/21/2024 Opioid dependence, uncomplicated (ICD-10 - F11.20) 12/23/2023 Opioid dependence, uncomplicated (ICD-10 - F11.20) 11/25/2023 Opioid dependence, uncomplicated (ICD-10 - F11.20) 10/22/2023 Opioid dependence, uncomplicated (ICD-10 - F11.20) 09/18/2023 Opioid dependence, uncomplicated (ICD-10 - F11.20) 03/02/2024 Hypertension, unspecified type (ICD9-CM - 401.9) 05/21/2024 Opioid dependence, uncomplicated (ICD-10 - F11.20) 06/24/2024 Negative depression screening (ICD-10 - Z13.31) 07/29/2024 Insomnia due to other mental disorder (ICD-10 - F51.05) Second generation antipsychotics (SGAs) have metabolic syndrome issues with weight gain, increase in prolactin, increased waist circumference, increased lipids, and increased glucose. Thus routine monitoring of weight, metabolic labs, etc. is indicated. A general rank ordering of antipsychotics that have the greatest to the least risk of metabolic effects is olanzapine, quetiapine, risperidone, ziprasidone, and aripiprazole. However, weight gain can occur with all of these drugs and considerable variability exists among patients receiving the same drug regarding the risk of metabolic effects. Anti-psychotic agents not only increase the risk of metabolic disorder, they also increase the risk of CVA, akathisia, and movement disorders including EPS or tardive dyskinesia (more common with first generation antipsychotics) and more. 07/29/2024 Encounter for screening for cardiovascular disorders (ICD-10 - Z13.6) 05/21/2024 Encounter for screening for cardiovascular disorders (ICD-10 - Z13.6) 06/24/2024 Nicotine use (ICD-10 - Z72.0) 07/29/2024 Negative depression screening (ICD-10 - Z13.31) 09/18/2023 Other Stable, continue current medications. Refills sent in today. Patient educated on all medications including potential benefits, side effects, risks. Educated on proper dosing schedule and importance of compliance. [place] report checked and consistent with prescription history, no controlled substance prescriptions from other providers. UDT reviewed. 10/22/2023 Other Stable, continue current medications. refills sent today. Patient educated on all medications including potential benefits, side effects, risks. Educated on proper dosing schedule and importance of compliance. [place] report checked and consistent with prescription history, no controlled substance prescriptions from other providers. Suboxone count and UDT reviewed. 11/25/2023 Other referral to the local chapter or national office of the Alzheimer's Association ( ; http://www.alz.or g), the Alzheimer's Disease Education and Referral [facility] (ADEAR) ( ; http://www.watson.ni h.gov/Alzheimers/ ), Stable, continue current medications. Patient educated on all medications including potential benefits, side effects, risks. Educated on proper dosing schedule and importance of compliance. [place] report checked and consistent with prescription history, no controlled substance prescriptions from other providers. 12/23/2023 Other Stable, continue current medications. Patient educated on all medications including potential benefits, side effects, risks. Educated on proper dosing schedule and importance of compliance. [place] report checked and consistent with prescription history, no controlled substance prescriptions from other providers. Suboxone count and UDT reviewed. 01/21/2024 Other Stable, continue current medications. Refills sent in. Patient educated on all medications including potential benefits, side effects, risks. Educated on proper dosing schedule and importance of compliance. [place] checked and consistent with prescription history, no controlled substance prescriptions from other providers. UDT reviewed Suboxone count reviewed. 03/02/2024 Other Stable, cont current medications. Refills sent in today. Patient educated on all medications including potential benefits, side effects, risks. Educated on proper dosing schedule and importance of compliance. [place] checked and consistent with prescription history, no controlled substance prescriptions from other providers. -Assessment and treatment plan reviewed with patient. -Compliance with treatment plan importance discussed. -Discussed the risks/benefits of this medication -Discussed medication side effects. -Contact office if symptoms worsen. -Discussed that it can take up to 6-8 weeks to see full therapeutic effects of psychotropic medications. -Crisis prevention [facility] 988. 03/30/2024 Other Stable, cont current medicatins. Refills sent in. Patient educated on all medications including potential benefits, side effects, risks. Educated on proper dosing schedule and importance of compliance. [place] checked and consistent with prescription history, no controlled substance prescriptions from other providers. UDT and suboxone count reviewed -Assessment and treatment plan reviewed with patient. -Compliance with treatment plan importance discussed. -Discussed the risks/benefits of this medication -Discussed medication side effects. -Contact office if symptoms worsen. -Discussed that it can take up to 6-8 weeks to see full therapeutic effects of psychotropic medications. -Crisis prevention [facility] 988. 04/22/2024 Other Stable, cont current medications. Suboxone refill sent in. Patient educated on all medications including potential benefits, side effects, risks. Educated on proper dosing schedule and importance of compliance. [place] checked and consistent with prescription history, no controlled substance prescriptions from other providers. -Assessment and treatment plan reviewed with patient. -Compliance with treatment plan importance discussed. -Discussed the risks/benefits of this medication -Discussed medication side effects. -Contact office if symptoms worsen. -Discussed that it can take up to 6-8 weeks to see full therapeutic effects of psychotropic medications. -Crisis prevention [facility] 988. 05/21/2024 Other Stable, cont current medications, refills sent in. Patient educated on all medications including potential benefits, side effects, risks. Educated on proper dosing schedule and importance of compliance. [place] checked and consistent with prescription history, no controlled substance prescriptions from other providers. -Assessment and treatment plan reviewed with patient. -Compliance with treatment plan importance discussed. -Discussed the risks/benefits of this medication -Discussed medication side effects. -Contact office if symptoms worsen. -Discussed that it can take up to 6-8 weeks to see full therapeutic effects of psychotropic medications. -Crisis prevention [facility] 988. 06/24/2024 Other Stable on current medication regimen, continue at current doses. -Refills sent in today for Suboxone -No concerns today Patient educated on all medications including potential benefits, side effects, risks. Educated on proper dosing schedule and importance of compliance. [place] report checked and consistent with prescription history, no controlled substance prescriptions from other providers. referral to the local [facility] or national office of the Alzheimer's Association ( ; http://www.alz.or g), the Alzheimer's Disease Education and Referral Center (ADEAR) ( ; http://www.watson.ni h.gov/Alzheimers/ ), -Assessment and treatment plan reviewed with patient. -Compliance with treatment plan importance discussed. -Discussed the risks/benefits of this medication -Discussed medication side effects. -Contact office if symptoms worsen. -Discussed that it can take up to 6-8 weeks to see full therapeutic effects of psychotropic medications. -Crisis [facility] 98. 07/29/2024 Other Stable on current medication regimen, continue at current doses. -Refills sent in today for Suboxone -No concerns today Patient educated on all medications including potential benefits, side effects, risks. Educated on proper dosing schedule and importance of compliance. [place] report checked and consistent with prescription history, no controlled substance prescriptions from other providers. -Assessment and treatment plan reviewed with patient. -Compliance with treatment plan importance discussed. -Discussed the risks/benefits of this medication -Discussed medication side effects. -Contact office if symptoms worsen. -Discussed that it can take up to 6-8 weeks to see full therapeutic effects of psychotropic medications. -Crisis [facility] 98. 09/01/2024 Other Stable on current medication regimen, continue at current doses. -Refills sent in today -No concerns today Patient educated on all medications including potential benefits, side effects, risks. Educated on proper dosing schedule and importance of compliance. [place] report checked and consistent with prescription history, no controlled substance prescriptions from other providers. UDT, Suboxone count reviewed -Assessment and treatment plan reviewed with patient. -Compliance with treatment plan importance discussed. -Discussed the risks/benefits of this medication -Discussed medication side effects. -Contact office if symptoms worsen. -Discussed that it can take up to 6-8 weeks to see full therapeutic effects of psychotropic medications. -Crisis prevention hotline 058. Plan Of Treatment Next Appt Details Provider Name:Annalisa Malachi lion, 09/29/2024 08:30:00 AM, [address], [place], [address], Insurance Providers Payer Name Payer Address Payer Phone Subscriber Number Group Number Insured Name Patient Relationship to Insured Coverage Start Date Coverage End Date Medicare-I l Medicare [address] [place] [phone] [id number] MATT SALMERON Self - patient is the insured Medicaid-I l Medicaid [address] [address] [place] [address] [id number] MATT SALMERON Self - patient is the insured Medical (General) History Medical History History ICD Code Problems: Chronic hepatitis C Generalized anxiety disorder 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
[2024-09-07 08:15] LABS: Alanine Aminotransferase 42 U/L (6-50); Albumin Level 4.4 g/dL (3.5-5.1); Alkaline Phosphatase 73 U/L (38-126); Anion Gap 9 mmol/L (4-12); Aspartate Amino Transferase 45 U/L (17-59); Bilirubin,Total 0.3 mg/dL (0.2-1.3); Blood Urea Nitrogen 16 mg/dL (9-20); Calcium 9.6 mg/dL (8.4-10.2); Carbon Dioxide 24 mmol/L (22-30); Chloride 107 mmol/L (98-107); Estimated Glomerular Filt Rate > 60; Glucose 112 mg/dL (65-110); Potassium 4.3 mmol/L (3.4-5.0); Sodium 140 mmol/L (137-145); Total Protein 7.7 g/dL (6.3-8.2)
[2024-09-07 08:18] LABS: Hemoglobin A1C 7.1 % (<5.7)
== END 2024-09-07 06:56 | disposition home or self-care (01) ==
LOC: ANHLAB 06:56
PROVIDERS: PCP Nurse Practitioner Family; Visit Provider Nurse Practitioner Family
DX: E11.9 Type 2 diabetes mellitus without complications (principal); Z79.4 Long term (current) use of insulin; E78.5 Hyperlipidemia, unspecified; B18.2 Chronic viral hepatitis C; C61 Malignant neoplasm of prostate; M19.90 Unspecified osteoarthritis, unspecified site
CPT/HCPCS: 36415; 80053; 83036